=== PATIENT | male | born 1980 | race African-American/Black ===

== ENCOUNTER 2017-12-08 19:21 | Observation (INO) ==
--- NOTE | 2017-12-08 19:31 | Emergency Department Note ---
Disposition Clinical Impression: Hypertensive emergency Disposition: Admitted As Inpatient Condition: Fair Time of Disposition: 23:12 General Adult HPI - General Chief complaint: ED Extremity Injury, Upper Stated complaint: L Hand Injury from 11/29 Time Seen by Provider: 12/08/17 19:31 Source: patient Mode of arrival: ambulatory Limitations: no limitations Nursing Notes Reviewed: Yes Vital Signs Reviewed: Yes - History of Present Illness HPI Narrative: 37 year old male presenting with L hand pain since fall 11/29. He is unable to make a complete fist, reports mild swelling, denies cold extremities, numbness. Recent history significant for hypertensive urgency, pt reports noncompliance with prior prescriptions (labetalol and lisinopril), he responded to antihypertensive medication while in-patient for hypertensive urgency a week ago , he then left AMA on the . Pain Scale: 7 - Related Data Home Medications Medication Instructions Recorded Confirmed Labetalol HCl 300 mg PO BID 12/02/17 12/02/17 Lisinopril [Zestril] 10 mg PO DAILY 12/02/17 12/02/17 Quetiapine Fumarate [SEROquel] 100 mg PO HS 12/02/17 12/02/17 Allergies Allergy/AdvReac Type Severity Reaction Status Date / Time Amoxicillin Allergy See Verified 12/02/17 08:47 Comments Constitutional: Denies: fever Eyes: Denies: vision change Cardiovascular: Reports: other (palpitations and chest discomfort for 1 week). Denies: dyspnea on exertion, syncope Respiratory: Denies: cough, dyspnea Gastrointestinal: Denies: abdominal pain Past Medical History - Past Medical History Medical history: Reports: hypertension, myocardial infarction, renal disease Surgical history: Reports: no surgical history Psychiatric history: Reports: no psych history - Social History Smoking Status: Current every day smoker Smokeless Tobacco Status: No Alcohol use: Reports: occasionally Drug use: Reports: opiates, marijuana, IV Drug Use Physical Exam - General Limitations: no limitations General appearance: alert, in no apparent distress - Head Head exam: atraumatic, normocephalic - Eye Eye exam: Present: EOMI - ENT ENT exam: mucous membranes moist - Neck Neck exam: Present: full ROM - Cardiovascular Cardiovascular exam: Present: tachycardia. Absent: rubs, JVD - Abdominal Exam Abdominal exam: Present: soft, Non-Tender - Neurological Exam Neurological exam: Present: alert, oriented X3, other (no slurring of speech, no facial asymmetry) - Psychiatric Psychiatric exam: Present: normal affect - Skin Skin exam: Present: warm. Absent: cyanosis Course Course Narrative: On exam patient was hypertensive and tachycardic. Rest of vitals without normal limits. Neuro exam does not reveal cranial nerve deficit, facial asymmetry, or slurring of speech. Currently concern for hypertensive urgency, starting patient on his Labetalol 300mg BID, Lisinopril 10mg which he has been non- compliant with. Will order ecg, trop, and basic blood work. Discussed risks of non-compliance with patient. Initial complaint of L hand pain reveals no osseous abnormality on 2 view xray, will splint. ECG shows tachycardia, no st elevation, does have inverted t waves in I, II, aVL , aVF (new), V5, V6; similar to ECG obtained 12/01. Troponin is 0.06, down-trending from 0.12 the day he left AMA. Creatinine is elevated (chronically around 1.5-1.8) Manually measured bp between 150-160 systolic, will not start nitro drip at this time. Discussed patient with admitting hospitalist who agrees to admit for hypertensive emergency and management. Vital Signs Temperature 98.1 F 12/08/17 19:24 Pulse Rate 110 12/08/17 19:24 Respiratory Rate 16 12/08/17 19:24 Blood Pressure 220/128 12/08/17 19:24 O2 Sat by Pulse Oximetry 100 12/08/17 19:24 Temperature 98.1 F 12/08/17 19:24 Pulse Rate 90 12/08/17 22:36 Respiratory Rate 14 12/08/17 22:36 Blood Pressure 158/92 12/08/17 22:36 O2 Sat by Pulse Oximetry 98 12/08/17 22:36 Oxygen Delivery Oxygen Delivery Room Air Medical Decision Making - Medical Records Medical records reviewed: Yes I reviewed the patient's medical records. - Lab Data Lab results reviewed: Yes I reviewed the patient's lab results. Result diagrams: 12/08/17 20:38 12/08/17 20:39 Lab Results 12/08/17 12/08/17 12/08/17 Range/Units 20:38 20:39 20:39 WBC 6.2 (4.3-11.1) K/mcL RBC 5.71 H (4.19-5.50) M/mcL Hgb 14.5 (12.9-16.9) g/dL Hct 42.3 (37.5-50.1) % MCV 74.1 L (83.0-100.0) fL MCH 25.4 L (28.0-33.3) pg MCHC 34.3 (31.6-35.5) g/dL RDW 15.0 H (11.5-14.5) % Plt Count 186 (140-400) K/mcL MPV 11.0 (9.4-12.4) fL Immature Gran % 0.2 (0-4) % Seg Neutrophils % 57.8 % Lymphocytes % 32.1 % Monocytes % 9.0 % Eosinophils % 0.6 % Basophils % 0.3 % Neutrophils # 3.6 (1.6-8.9) K/mcL Lymphocytes # 2.0 (0.6-4.6) K/mcL Monocytes # 0.6 (0.0-1.3) K/mcL Eosinophils # 0.0 (0.0-0.6) K/mcL Basophils # 0.0 (0.0-0.2) K/mcL Sodium 139 (136-145) mEq/L Potassium 4.4 (3.5-5.1) mEq/L Chloride 110 H (98-107) mEq/L Carbon Dioxide 25 (23-29) mEq/L BUN 25 H (6-20) mg/dL Creatinine 1.82 H (0.70-1.30) mg/dL Est GFR ( Amer) 52 L (> 60) Est GFR (Non-Af Amer) 43 L (> 60) BUN/Creatinine Ratio 14 (6-26) Glucose 115 H (70-105) mg/dL Calculated Osmolality 293 (280-300) Calcium 8.8 (8.6-10.3) mg/dL Troponin I 0.06 H* (< 0.04) ng/mL - Radiology Data Radiology results reviewed: Yes I reviewed the patient's radiology results. Hand X-Ray 12/08/17 19:44 IMPRESSION: No acute osseous abnormality of the left hand. D/ / Scotty Álvarez MD / Scotty Álvarez MD Interpreting Provider: Scotty Álvarez MD - EKG Data EKG #1 EKG attestation: Yes I reviewed and interpreted this EKG. EKG results narrative: ECG obtained 2015; tachycardic at 100bpm, there are t wave inversions in leads I , II, aVF, V5, V6. Attestation Statement - Attestation Attestation: I examined this patient and my medical decision-making was reviewed with the Resident Physician. I agree with the documented findings, disposition and treatment plan as described except to the extent set forth below. Findings consistent with hypertensive emergency. This is suggested by the underlying elevated troponin as well as elevated creatinine. I do suspect a significant noncompliance with hypertensive regimen. The patient will be given his normal by mouth dose of labetalol. I would proceed with admission to hospital for further management and monitoring of cardiac biomarkers.
[2017-12-08] MEDS ORDERED: Nitroglycerin 0.4 MG TAB.SUBL SL PRN (20:19)
[2017-12-08] MEDS ORDERED: Aspirin 81 MG TAB.CHEW PO ONE (20:19)
[2017-12-08 21:05] LABS: Basophils % 0.3 %; Eosinophils % 0.6 %; Hematocrit 42.3 % (37.5-50.1); Hemoglobin 14.5 g/dL (12.9-16.9); Immature Granulocytes % 0.2 % (0-4); Lymphocytes % 32.1 %; Mean Corpuscular HGB Conc 34.3 g/dL (31.6-35.5); Mean Corpuscular Hemoglobin 25.4 pg (28.0-33.3); Mean Corpuscular Volume 74.1 fL (83.0-100.0); Monocytes # 0.6 K/mcL (0.0-1.3); Neutrophils # 3.6 K/mcL (1.6-8.9); Platelet Count 186 K/mcL (140-400); Red Blood Count 5.71 M/mcL (4.19-5.50); Segmented Neutrophils % 57.8 %
[2017-12-08 21:07] LABS: Calcium 8.8 mg/dL (8.6-10.3); Potassium 4.4 mEq/L (3.5-5.1)
[2017-12-08] MEDS ORDERED: Nitroglycerin 25 MG/250 ML INFUS..BTL IVC SCH (21:30)
[2017-12-09] MEDS ORDERED: Acetaminophen IV 1,000 MG/100 ML INFUS..BTL IVPB ONE (01:26)
[2017-12-09] MEDS ORDERED: Ibuprofen 400 MG TABLET PO ONE (01:28)
[2017-12-09] MEDS ORDERED: Naloxone 0.4 MG/ML INJ IVP PRN ×2 (02:04)
--- NOTE | 2017-12-09 02:12 | Internal Med History&Physical ---
Date of Encounter: 12/09/17 Time of Encounter: 02:03 Assessment and Plan (1) Fall (on) (from) other stairs and steps, sequela Current visit: Yes Status: Acute 37-year-old male presenting for left hand pain 2 weeks, after fall Hand x-ray impression reviewed no acute abnormalities Pain management while inpatient May elevate hand, to reduce edema Crushed ice (covered, not directly applied) can be compressed against the injured area for up to 20 minutes every one to two hours; for up to 48 hours. Physical therapy for functional rehabilitation (2) Hypertensive crisis Current visit: No Status: Acute SBP on floor 140 Vitals signs q4h Resume home medication Education on importance of non-compliance (3) CKD (chronic kidney disease) Current visit: No Status: Chronic Acute on Chronic CKD, with Cr above baseline Gentle IVF hydration Reports a history of hospitalization at [facility] in 2014 for which he tells me he needed dialysis and he was told he had a "heart attack". No [facility]. Monitor kidney function. Would benefit from outpatient nephrology referral. Patient was referred to Dr. Rivera Can possibly c/s Dr. Rivera here or refer him to his office before discharge Hold Lisinopril due renal function, may need to resume prior to discharge Qualifiers: Chronic kidney disease stage: stage 3 (moderate) Qualified Code(s): N18.3 - Chronic kidney disease, stage 3 (moderate) (4) Elevated troponin Current visit: No Status: Acute Troponins downtrending. Elevated troponin likely 2/2 to ischemic imbalance due to hypertension Trend cardiac enzymes. check TTE. c/s cardiology (5) DVT prophylaxis Current visit: No Status: Acute EPCD. (6) Smoking Current visit: Yes Status: Acute Nicotine patch while inpatient. Encourage smoking cessation. (7) History of opioid abuse Current visit: Yes Status: Acute Recommend judicious use of pain medication given history. No signs of withdrawal at this time. Internal Medicine - H&P: HPI Chief complaint: L Hand Pain Admitted From: Emergency Dept Plans for Post Hospital Care: Home History of present illness: Mr. Brown is a 37 year old male with hypertension presenting with left hand pain, found to have uncontrolled blood pressure in ED. Duration and onset: 2 weeks. Context: Fell down icy stairs, does not recall how. Associated symptoms: reduced second baker strength, mild pain with re-producing second baker. Denies SOB. Denies chest pain. Pt has been taking Percocet 5-325 x 2x day to control pain, from "wherever he can get". Pt admits to previous chronic drug abuse, including heroin. States he discontinued heroin 2 years ago and now only recreationally smokes marijuana. Pt is smoker. Past Med Surg Social Fam HX - Past Medical History Medical history: hypertension, myocardial infarction, renal disease Psychiatric history: no psych history - Past Surgical History Surgical History: no surgical history - Social History Smoking Status: Current every day smoker Packs per day: 0.5 pack Smokeless Tobacco Status: No Alcohol use: occasionally Drug use: opiates, marijuana, IV Drug Use - Family History Father Adopted: No Living Status: Hx Family Cardiac Disorders: No Hx Family Respiratory Disorders: Yes Hx Family Cancer: Yes Hx Family GI Disorders: Yes Hx Family Endocrine Disorder: Yes Hx Family Neuromuscular Disorders: No Hx Family Neurologic Disorders: No Hx Family HEENT Disorders: No Hx Family Autoimmune Disorders: No Mother Living Status: Hx Family GI Disorders: Yes Internal Medicine - H&P: Meds Labetalol HCl 300 mg PO BID 12/02/17 [History] Lisinopril [Zestril] 10 mg PO DAILY 12/02/17 [History] Quetiapine Fumarate [SEROquel] 100 mg PO HS 12/02/17 [History] 3 Allergy/AdvReac Type Severity Reaction Status Date / Time Amoxicillin Allergy See Verified 12/02/17 08:47 Comments All Systems PM: A 10-system review of systems was performed and is negative for pertinent findings except as documented above in the HPI. - Constitutional Vitals: Temp Pulse Resp BP Pulse Ox 98.0 F 73 18 143/82 99 12/08/17 23:56 12/08/17 23:56 12/08/17 23:56 12/08/17 23:56 12/08/17 23:56 General appearance: Present: cooperative, A&O X 3, no acute distress, answers questions appropriately Exam: No tremors. No agitation. No moist skin. HR within NML. - Head Head exam: Present: atraumatic, normocephalic - Eye Eye exam: Present: EOMI, normal appearance. Absent: conjunctival injection - Respiratory Respiratory exam: Present: CTAB. Absent: accessory muscle use, chest wall tenderness, respiratory distress - Cardiovascular Cardiovascular exam: Present: RRR, +S1, +S2 - Extremities Exam Additional comments: Hands: Right: No Soft tissue swelling present. Full second baker strength. No Point tenderness o. Full range of motion. No joint laxity. Extremity and fingers of normal warmth. No puncture wound. No lacerations visible. No cyanosis. Left Soft tissue swelling present, most prominent at region overlying metacarpal bones. Subtle decreased second baker strength in comparison to right. Point tenderness over base of third proximal phalanges. Full range of motion. No joint laxity. Extremity and fingers of normal warmth. No puncture wound. No lacerations visible. No cyanosis. Radial pulse palpable. Internal Med - H&P Results - Labs CBC & Chem 7: 12/09/17 02:45 12/09/17 02:45 - EKG Data EKG comments: 09/12/2017 20:16: 16 EKG reviewed with attending MD Blanco EKG with T wave inversion seen, present on EKG from 12/01 too but not on EKG on . - Impressions ITS Impressions Hand X-Ray 12/08/17 19:44 IMPRESSION: No acute osseous abnormality of the left hand. D/ / Scotty Álvarez MD / Scotty Álvarez MD Interpreting Provider: Scotty Álvarez MD
--- NOTE | 2017-12-09 02:17 | Event Note ---
Date of Encounter: 12/09/17 Time of Encounter: 02:12 Patient was seen and examined by myself. Agree with the H&P as written by the Resident Physician, Judy Tian. Has h/o noncompliance, htn, CKD, IVDA last used in 2014. Also reports a history of hospitalization at [facility] back in 2014 for which he tells me he needed dialysis and he was told he had a "heart attack". No [facility]. Recently left AMA on 12/02 and at the time was admitted with HTNsive urgency requiring Cardene drip. He is supposed to be on Labetalol and Lisinopril which he is not taking. He comes with left hand pain since a fall on 11/29. Xray of hand is neg. BP in ED was found again elevated in the 220s/110s. Initially ordered a nitro drip. Was given labetalol and lisinopril home doses and BP started coming down. Patient is admitted for hypertensive urgency. Labs showed trops of .06 but seems to have been elevated during last visit too with trop of .12 on 12/02. Patient has no CP. EKG with T wave inversion in leads I, II, aVL, aVF, V5, V6, LVH. Those were present on EKG from 12/01 too but not on EKG back on 02/25/2017. Plan: Resume home antihypertensives but hold ACEI for now with kidney function above baseline. Trend cardiac enzymes. check TTE. c/s cardiology Monitor kidney function. Would benefit from outpatient nephrology referral Patient was referred to Dr. Rivera at some time in the past and he says he saw him once or twice but stopped following. Can possibly c/s Dr. Rivera here or refer him to his office before discharge Gentle hydration Needs education on compliance
[2017-12-09] MEDS: 0.9 % Sodium Chloride 1,000 ML IVC SCH ×2 (02:30→13:45)
[2017-12-09 03:32] LABS: Mean Platelet Volume 11.3 fL (9.4-12.4); Red Cell Distribution Width 14.4 % (11.5-14.5)
[2017-12-09 03:34] LABS: Basophils % 0.3 %; Eosinophils # 0.1 K/mcL (0.0-0.6); Eosinophils % 1.9 %; Hematocrit 37.9 % (37.5-50.1); Hemoglobin 12.8 g/dL (12.9-16.9); Immature Granulocytes % 0.2 % (0-4); Immature Platelets 4.2 % (1.1-6.1); Lymphocytes # 2.6 K/mcL (0.6-4.6); Lymphocytes % 41.2 %; Mean Corpuscular HGB Conc 33.8 g/dL (31.6-35.5); Mean Corpuscular Hemoglobin 25.3 pg (28.0-33.3); Monocytes # 0.6 K/mcL (0.0-1.3); Monocytes % 9.4 %; Platelet Count 180 K/mcL (140-400); Red Blood Count 5.05 M/mcL (4.19-5.50)
[2017-12-09 03:49] LABS: Calcium 8.4 mg/dL (8.6-10.3); Potassium 3.8 mEq/L (3.5-5.1)
[2017-12-09] MEDS: Nicotine 21 MG PATCH.TD24 TD SCH (08:20)
--- NOTE | 2017-12-09 11:32 | Nephrology Consult Note ---
Date of Encounter: 12/09/17 Time of Encounter: 11:30 Assessment and Plan (1) Hypertensive urgency Current Visit: Yes Status: Acute History of present [place] room with hypertensive urgency. His blood pressure is currently well controlled on his current medical regimen. Patient has a history of very poor compliance with taking medications as well as with attending his office visits as an outpatient. 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 Currently his renal function is stable. His blood pressure is well controlled. The patient was counseled on being more compliant with taking his blood pressure medications and attending his office visits. I would continue his current medical regimen since blood pressure is well controlled. The patient can follow-up as an outpatient. (2) Chronic kidney disease, stage III (moderate) Current Visit: Yes Status: Acute (3) History of opioid abuse Current Visit: Yes Status: Acute History of Present Illness - History of Present Illness This is a 37-year-old male who previously was been followed for hypertension which has been severe as well as chronic kidney disease. Patient has been very poorly compliant with his medications as well as being very poorly compliant with attending his office visits as an outpatient. He was last seen in the office in July 2016. Patient now presents to the emergency room with complaints of hand pain following a fall. He was noted to have a blood pressure of 220/128 and was subsequently admitted to the hospital. He says he has not taken any blood pressure medications for many months because he does not like taking medications. He has been started on oral medications here in the hospital and his blood pressure currently is well controlled at 130/70. His serum creatinine today is down to his baseline of 1.65 with a GFR of 58. 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 Patient also has a history of substance abuse. Past Med Surg Social Fam HX - Past Medical History Medical history: hypertension, myocardial infarction, renal disease Psychiatric history: no psych history - Past Surgical History Surgical History: no surgical history - Social History Smoking Status: Current every day smoker Packs per day: 0.5 pack Smokeless Tobacco Status: No Alcohol use: occasionally Drug use: opiates, marijuana, IV Drug Use - Family History Father Adopted: No Living Status: Hx Family Cardiac Disorders: No Hx Family Respiratory Disorders: Yes Hx Family Cancer: Yes Hx Family GI Disorders: Yes Hx Family Endocrine Disorder: Yes Hx Family Neuromuscular Disorders: No Hx Family Neurologic Disorders: No Hx Family HEENT Disorders: No Hx Family Autoimmune Disorders: No Mother Living Status: Hx Family GI Disorders: Yes Medications and Allergies Labetalol HCl 300 mg PO BID 12/02/17 [History] Lisinopril [Zestril] 10 mg PO DAILY 12/02/17 [History] Quetiapine Fumarate [SEROquel] 100 mg PO HS 12/02/17 [History] 3 Allergy/AdvReac Type Severity Reaction Status Date / Time Amoxicillin Allergy See Verified 12/02/17 08:47 Comments Review of Systems Constitutional: as per HPI Eyes: bilateral: blurred vision (patient denies), diplopia (patient denies) Nose, mouth and throat: no dizziness, no headache(s) Cardiovascular: no chest pain, no palpitations Respiratory: no cough, no dyspnea Gastrointestinal: no abdominal pain, no change in bowel habits Musculoskeletal: no muscle weakness, no numbness Musculoskeletal: left: hand pain Integumentary: no hirsutism, no striae Neurological: as per HPI Psychiatric: no depression, no difficulty concentrating Endocrine: as per HPI Hematologic/Lymphatic: no easy bruising, no lymphadenopathy Exam - Vital Signs Vital signs: Initial Vital Signs Temp Pulse Resp BP Pulse Ox 98.1 F 110 16 220/128 100 12/08/17 19:24 12/08/17 19:24 12/08/17 19:24 12/08/17 19:24 12/08/17 19:24 Vital Signs - Last 8 Hours Temp Pulse Resp BP Pulse Ox 12/09/17 10:56 98.6 F 62 16 130/70 96 12/09/17 06:56 98.5 F 58 16 138/74 99 12/09/17 04:02 98.0 F 82 14 120/68 98 12/09/17 03:50 16 100 Intake and Output 12/08/17 12/09/17 12/09/17 23:59 07:59 15:59 Intake Total 600 / 600 Balance 600 / 600 Intake: Oral 600 / 600 Other: Meal Breakfast Percent of Meal Consumed 100% # Voids 2 Weight 82.4 kg Blood Glucose* 149 113 - General Appearance Exam: Patient is alert and oriented. He is in no acute distress. Blood pressure 130/ 70. Lungs essentially clear to auscultation. Heart regular rate and rhythm without any murmurs or S4 gallops clicks or rubs. Abdomen shows normal bowel sounds no bruits masses organomegaly or tenderness. There is no peripheral edema. Results - Lab Results 12/09/17 02:45 12/09/17 02:45 Most recent lab results Calcium 8.4 mg/dL (8.6-10.3) L 12/09/17 02:45 Consult Discharge Plan - Plan Instructions: Hypertensive Crisis (ED) Referrals: NONE,PCP [Primary Care Provider] -
--- NOTE | 2017-12-09 12:45 | Electrocardiograph Report ---
[address] [place], [place] [address] Test Date: 2017-12-08 Pat Name: Rob Brown Department: 102 Room: 3B14 Gender: M [employer] Hand: cynthia : 1980 Requested By: Modesto Barbour Order Number: [id number] Reading MD: Jordin Roblero Measurements Intervals [place] Rate: 100 P: 43 MI: 132 QRS: 78 QRSD: 89 T: 199 QT: 348 QTc: 405 Interpretive Statements SINUS TACHYCARDIA LEFT ATRIAL ENLARGEMENT Left ventricular hypertrophy WITH STRAIN PATTERN Electronically Signed On 12-09-2017 12:42:59 EDT by Jordin Roblero
[2017-12-09] MEDS ORDERED: Acetaminophen 325 MG TABLET PO PRN (14:17)
--- NOTE | 2017-12-09 14:23 | Cardiology Consult Note ---
Date of Encounter: 12/09/17 Time of Encounter: 14:17 Assessment and Plan (1) Elevated troponin Current Visit: No Status: Acute Mild elevated trops and previous nml ECHO Hx of OR, will obtain records for review Limited ECHO to evaluate EF Accelerated atherogenesis with cocaine in past will consider stress test after ECHO Obtain [facility] records for review Discussion w patient/family: The assessment and plan as outlined above was discussed with the patient and/or family members who expressed understanding and agreement. All questions were answered. Thank you for involving us in the care of your patient. Please call with any questions. History of Present Illness Consult date: 12/09/17 Consult reason: Elevated troponin Chief complaint: SOB History of present illness: Mr. Brown is a 37 year old male with h/o HTN, CKD, CAD (OR at [facility]) presents after a slip and fall on stairs with hand injuries. Patient found to have ST changes and initial trop .06. Previous ECHO unremakable and patient not sure of his work up for previous OR 2 years ago. He currently is resting comfortable denies any symptoms. He does admit to a hx of polysubstance abuse and states last used Meth. He complains of recent worsening HOGAN in the last few weeks with fast regular palpitations. He admits to years of crack cocaine Past Med Surg Social Fam HX - Past Medical History Medical history: hypertension, myocardial infarction, renal disease Psychiatric history: no psych history - Past Surgical History Surgical History: no surgical history - Social History Smoking Status: Current every day smoker Packs per day: 0.5 pack Smokeless Tobacco Status: No Alcohol use: occasionally Drug use: opiates, marijuana, IV Drug Use - Family History Father Adopted: No Living Status: Hx Family Cardiac Disorders: No Hx Family Respiratory Disorders: Yes Hx Family Cancer: Yes Hx Family GI Disorders: Yes Hx Family Endocrine Disorder: Yes Hx Family Neuromuscular Disorders: No Hx Family Neurologic Disorders: No Hx Family HEENT Disorders: No Hx Family Autoimmune Disorders: No Mother Living Status: Hx Family GI Disorders: Yes Medications and Allergies Labetalol HCl 300 mg PO BID 12/02/17 [History] Lisinopril [Zestril] 10 mg PO DAILY 12/02/17 [History] Quetiapine Fumarate [SEROquel] 100 mg PO HS 12/02/17 [History] 3 Allergy/AdvReac Type Severity Reaction Status Date / Time Amoxicillin Allergy See Verified 12/02/17 08:47 Comments All Systems Review: The remainder of the systems were reviewed and are negative Physical Examination Vital Signs, Last 4 Hours Temp Pulse Resp BP Pulse Ox 12/09/17 10:56 98.6 F 62 16 130/70 96 General: Conversant, No Apparent Distress HEENT: Atraumatic, Normocephaly, Mucus Membranes Moist Neck: No JVD, Normal carotid pulses Cardiac: Reg Rate and Rhythm, Normal S1 and S2, No Murmur Lungs: Normal Breath Sounds, No Wheeze, Rales, Rhonchi Neuro: Alert and responsive, No focal deficits noted Abdomen: Soft, Non-Tender Skin: No rashes noted on visualized skin Musculoskeletal: No Chest Wall Tenderness Extremities: No Clubbing, No Cyanosis, No Edema, Normal Pulses Results 12/09/17 02:45 12/09/17 02:45 Lab Results 12/09/17 12/09/17 12/09/17 02:45 02:45 02:45 WBC 6.4 Hgb 12.8 L D Hct 37.9 Plt Count 180 Sodium 139 Potassium 3.8 Chloride 109 H Carbon Dioxide 24 BUN 21 H Creatinine 1.65 H Glucose 122 H Calcium 8.4 L Troponin I 0.05 H* 12/09/17 08:17 WBC Hgb Hct Plt Count Sodium Potassium Chloride Carbon Dioxide BUN Creatinine Glucose Calcium Troponin I 0.03 Consult Discharge Plan - Plan Instructions: Hypertensive Crisis (ED) Referrals: NONE,PCP [Primary Care Provider] -
--- NOTE | 2017-12-09 17:44 | Internal Med Progress Note ---
Date of Encounter: 12/09/17 Time of Encounter: 08:45 - Assessment and plan (1) Chronic kidney disease, stage III (moderate) Current Visit: Yes Status: Chronic Assessment and plan: Chronic. Patient has been nonadherent to treatment plan and follow-up appointments. Serum creatinine is 1.65/GFR 48. Improving since admission. Nephrology has been consult and is following. Continuing current medical regimen and follow up outpatient. (2) Fall (on) (from) other stairs and steps, sequela Current Visit: Yes Status: Acute Assessment and plan: Patient with left hand pain status post fall downstairs 2 weeks ago. Left hand x-ray is negative. Continue conservative pain management. Tylenol has been ordered today. Elevate, ice, Jet if necessary. Physical therapy for functional rehabilitation. (3) History of opioid abuse Current Visit: Yes Status: Chronic Assessment and plan: Patient reports no heroin use for 3 years. (4) Hypertensive emergency Current Visit: Yes Status: Acute Assessment and plan: Prior history. Acute episode this admission. Initial blood pressure however was 220/128. He has been placed on Trandate, Zestril. Blood pressure is now well controlled. Continue prescriptions after discharge. Nephrology is following, plan as above. Continue telemetry Continue to monitor vital signs. (5) Smoking Current Visit: Yes Status: Chronic Assessment and plan: Patient reports smoking 0.5 pack per day. NicoDerm patch. (6) DVT prophylaxis Current Visit: Yes Status: Acute Assessment and plan: Patient has been ambulatory, continue to encourage ambulation. (7) Elevated troponin Current Visit: Yes Status: Acute Assessment and plan: While, flat, adynamic elevation in the setting of hypertensive crisis and CKD. Cardiology has ordered a limited echo. Records from [place] have been ordered for review. - Time Spent With Patient less than 15 minutes - Subjective Interval history: Patient was seen and assessed at bedside at 8:45 AM. He reports that he is feeling better. He reports that he is ready to be adherent to her medications and follow-up appointments. He denies headache, blurred vision, neck or back pain. He denies chest pain or shortness of breath. - Constitutional Vitals: Temp Pulse Resp BP Pulse Ox 98.9 F 65 18 120/82 99 12/09/17 15:54 12/09/17 15:54 04/02/18 15:54 12/09/17 15:54 12/09/17 15:54 General appearance: Present: cooperative, A&O X 3, pleasant, no acute distress, answers questions appropriately - Head Head exam: Present: atraumatic, normal inspection, normocephalic - Eye Eye exam: Present: normal appearance, conjuntiva pink, sclera anicteric - Neck Neck exam general surgery: Present: supple, trachea midline. Absent: lymphadenopathy - Respiratory Respiratory exam: Present: CTAB. Absent: accessory muscle use, rales, rhonchi, wheezes - Cardiovascular Cardiovascular exam: Present: RRR, +S1, +S2. Absent: diastolic murmur, gallop, rubs, systolic murmur - GI/Abdominal GI/Abdominal exam: Present: normal bowel sounds, soft, no peritoneal signs. Absent: distended, tenderness - Extremities Exam Extremities exam: Present: warm, radial pulses palpable and symmetrical. Absent : calf tenderness, cyanotic, pedal edema - Neurological Exam Neurological exam: Present: CN II-XII intact, oriented X3, no focal deficits. Absent: pronater drift, facial droop, speech deficit - Skin Skin exam: Present: dry, intact Internal Medicine: Result - Labs CBC & Chem 7: 12/09/17 02:45 12/09/17 02:45 Labs: Short CBC 12/09/17 Range/Units 02:45 WBC 6.4 (4.3-11.1) K/mcL Hgb 12.8 L D (12.9-16.9) g/dL Hct 37.9 (37.5-50.1) % Plt Count 180 (140-400) K/mcL Neutrophils # 3.0 (1.6-8.9) K/mcL BMP 12/09/17 02:45 Sodium 139 Potassium 3.8 Chloride 109 H Carbon Dioxide 24 BUN 21 H Creatinine 1.65 H Glucose 122 H Calcium 8.4 L Cardiac Enzymes 12/09/17 12/09/17 Range/Units 02:45 08:17 Troponin I 0.05 H* 0.03 (< 0.04) ng/mL - Impressions Impressions Echocardiogram 12/09/17 03:05 Impressions: LVEF 55-60%. Mild pulmonary hypertension. Moderate-severe concentric left ventricular hypertrophy without LVOT gradient or mitral systolic anterior motion No severe valvular dysfunction. Left Ventricular Wall Motion: Rest Echo Findings All wall segments showed normal motion. Findings: ECG Findings * Normal sinus rhythm. Study Quality * Technically adequate exam. Right Ventricle * Normal right ventricular structure and function. Right Atrium * Normal right atrial size. Aortic Valve * Trileaflet aortic valve with normal function. Interatrial Septum * No evidence of PFO by color Doppler. Aorta * Normally sized aortic root. Pericardium * The pericardium appears normal. Mitral Valve * Normal mitral valve structure. * No mitral stenosis. * Mild-moderate mitral regurgitation. Left Ventricle * LVEF 55-60%. * Normal left ventricular diastolic function. * Severe concentric left ventricular hypertrophy. Tricuspid Valve * No tricuspid stenosis. * Estimated RVSP is 40 mmHg. * Mild pulmonary hypertension. * Mild tricuspid regurgitation. Pulmonic Valve * No pulmonic stenosis. * Normal pulmonic valve structure. * Mild pulmonic regurgitation. Left Atrium * Severely dilated left atrium. IVC * Normal IVC dimensions and inspiratory collapse. Consult Discharge Plan - Plan Instructions: Hypertensive Crisis (ED) Referrals: NONE,PCP [Primary Care Provider] -
--- NOTE | 2017-12-10 08:14 | Event Note ---
Date of Encounter: 12/10/17 Time of Encounter: 08:14 The patient's blood pressure is under control. Renal function is stable. Nephrology will sign off. The patient can follow-up as an outpatient. Please call again if needed.
[2017-12-10] MEDS: Nicotine 21 MG PATCH.TD24 TD SCH (08:24)
--- NOTE | 2017-12-10 10:31 | Cardiology Progress Note ---
Date of Encounter: 12/10/17 Time of Encounter: 10:00 Assessment and Plan (1) Elevated troponin Current Visit: Yes Status: Acute Per cardiology: -Mild elevated trops 0.06, 0.04, 0.03, in the setting of fall, CKD. -Denies chest pain. -NO acute ECG changes. -TTE with LVEF 55-60%, mild pulmonary hypertension, moderate-severe concentric LVH no LVOT gradiant, no segmental wall motion abnormalities. -Records reviewed from [facility] with TTE with LVEF preserved, no segmental wall motion abnormalities. Per review of records, was not diagnosed with NV, was treated for endocarditis. -Do not suspect NSTEMI, suspect demand ischemia related to above. NO cardiac rehab consult warranted. -Per discussion with , cardiology will sign off and will follow in outpateint setting. -Can consider outpatient stress test. Discussion w patient/family: The assessment and plan as outlined above was discussed with the patient who expressed understanding and agreement. All questions were answered. Thank you for involving us in the care of your patient. Please call with any questions. Discussed and reviewed with . Subjective Principal diagnosis: fall Interval history: Patient denies chest pain overnight, denies shortness of breath. Objective Vital Signs, Last 4 Hours Temp Pulse Resp BP Pulse Ox 12/10/17 07:16 97.4 F L 64 16 133/76 98 General: Conversant, No Apparent Distress, Other (Flat affect. ) HEENT: Atraumatic, Normocephaly, Mucus Membranes Moist Neck: No JVD, Normal carotid pulses Cardiac: Reg Rate and Rhythm, Normal S1 and S2, No Murmur Lungs: Normal Breath Sounds, No Wheeze, Rales, Rhonchi Neuro: Alert and responsive, No focal deficits noted Abdomen: Soft, Non-Tender Skin: No rashes noted on visualized skin Musculoskeletal: No Chest Wall Tenderness Extremities: No Clubbing, No Cyanosis, No Edema, Normal Pulses Results 12/09/17 02:45 12/09/17 02:45 Impressions Echocardiogram 12/09/17 03:05 Impressions: LVEF 55-60%. Mild pulmonary hypertension. Moderate-severe concentric left ventricular hypertrophy without LVOT gradient or mitral systolic anterior motion No severe valvular dysfunction. Left Ventricular Wall Motion: Rest Echo Findings All wall segments showed normal motion. Findings: ECG Findings * Normal sinus rhythm. Study Quality * Technically adequate exam. Right Ventricle * Normal right ventricular structure and function. Right Atrium * Normal right atrial size. Aortic Valve * Trileaflet aortic valve with normal function. Interatrial Septum * No evidence of PFO by color Doppler. Aorta * Normally sized aortic root. Pericardium * The pericardium appears normal. Mitral Valve * Normal mitral valve structure. * No mitral stenosis. * Mild-moderate mitral regurgitation. Left Ventricle * LVEF 55-60%. * Normal left ventricular diastolic function. * Severe concentric left ventricular hypertrophy. Tricuspid Valve * No tricuspid stenosis. * Estimated RVSP is 40 mmHg. * Mild pulmonary hypertension. * Mild tricuspid regurgitation. Pulmonic Valve * No pulmonic stenosis. * Normal pulmonic valve structure. * Mild pulmonic regurgitation. Left Atrium * Severely dilated left atrium. IVC * Normal IVC dimensions and inspiratory collapse. Active Medications Acetaminophen (Tylenol) 650 mg PO Q6HR PRN PRN Reason: Moderate Pain Stop: 06/10/18 14:18 Last Admin: 12/09/17 18:32 Dose: 650 mg Albuterol Sulfate (Albuterol Inhaler) 2 puff IH [id number] PRN PRN Reason: Shortness Of Breath/Wheezing Stop: 06/10/18 04:01 Aspirin (Aspirin Ec) 81 mg PO DAILY RENETTA Stop: 06/12/18 09:01 Labetalol HCl (Trandate) 300 mg PO BID RENETTA Stop: 06/10/18 09:01 Last Admin: 12/10/17 08:24 Dose: 300 mg Lisinopril (Zestril) 10 mg PO DAILY RENETTA PRN Reason: Protocol Stop: 06/10/18 09:01 Last Admin: 12/09/17 08:20 Dose: 10 mg Naloxone HCl (Narcan) 0.4 mg IVP Q2MIN PRN PRN Reason: SEE COMMENTS Stop: 06/10/18 02:05 Nicotine (Nicoderm) 21 mg TD DAILY RENETTA PRN Reason: Protocol Stop: 06/10/18 09:01 Last Admin: 12/10/17 08:24 Dose: 21 mg Quetiapine Fumarate (Seroquel) 100 mg PO HS RENETTA PRN Reason: Protocol Stop: 06/10/18 21:01 Last Admin: 12/09/17 21:53 Dose: 100 mg Laboratory Tests 04/0112/09/17 12/09/17 20:39 02:45 02:45 Hgb 12.8 L D Creatinine Troponin I 0.06 H* 0.05 H* 12/09/17 12/09/17 02:45 08:17 Hgb Creatinine 1.65 H Troponin I 0.03 - Imaging and Cardiology Chest Xray: report reviewed Echo: report reviewed - EKG Interpretation EKG results cardiology: other (Telemetry reviewed with average HR previous 12 hours noted to be 74, SR. PVCs and PACs noted.) Consult Discharge Plan - Plan Instructions: Hypertensive Crisis (ED) Referrals: NONE,PCP [Primary Care Provider] -
[2017-12-10 11:08] VITALS: BP 127/86
--- NOTE | 2017-12-10 13:41 | Discharge Summary ---
Date of Encounter: 12/10/17 Time of Encounter: 13:44 - Discharge Diagnosis (1) Hypertensive emergency Priority: Primary Status: Acute Comments: Has known history hypertension. In hypertensive emergency on arrival with SBP in 200s; secondary to medication noncompliance. BP well controlled with resuming home BP medication. Strongly encouraged medication compliance and establishing care with PCP. Given 1 month Rx for BP medication. (2) Elevated troponin Priority: Primary Status: Acute Comments: mild elevated trops 0.06, 0.04, 0.03, in the setting of fall, CKD. Denied chest pain. No acute ECG changes. TTE with EF 55-60%, mild pulmonary hypertension, moderate-severe concentric LVH no LVOT gradiant, no segmental wall motion abnormalities. Evaluated by Cardiology who did not suspect NSTEMI rather demand ischemia related to fall, CKD. No further cardiac workup recommended (consider outpatient stress test per cardiology recommendations). Follow-up with cardiology and follow up outpatient (3) Chronic kidney disease, stage III (moderate) Priority: Primary Status: Chronic Comments: per hx. Suppose to follow with nephrology outpatient but has been noncompliant with office visits. Renal function at baseline. Follow-up with nephrology outpatient. Nephrology followed (4) Fall (on) (from) other stairs and steps, sequela Priority: Primary Status: Acute Comments: Reported fall downstairs 2 weeks prior to presentation subsequent left hand pain. Left hand x-ray negative. Continue Tylenol PRN outpatient. (5) Smoking Priority: Secondary Status: Chronic Comments: Current smoker, cessation advised. Nicotine patches at discharge. Hospital course: Please see assessment and plan for Hospital course Discharge discussed with: patient (Seen and examined at bedside. Patient is new to me, information obtained from chart review and patient report. Patient says he feels back to baseline and once to discharge home today. No chest pain or shortness of breath. Strongly encourage smoking cessation and establishing care with PCP.) Time spent discussing smoking cessation with patient: 3 to 10 minutes - Time Spent with Patient Total time spent providing and/or coordinating discharge services: - Discharge Medications Prescriptions: Labetalol HCl 300 mg PO BID #60 tablet Lisinopril [Zestril] 10 mg PO DAILY #30 tablet Nicotine Patch [Nicoderm] 21 mg TD DAILY #30 patch.td24 Home Medications: Quetiapine Fumarate [Seroquel] 100 mg PO HS 12/02/17 [History] Labetalol HCl 300 mg PO BID #60 tablet 12/10/17 [Rx] Lisinopril [Zestril] 10 mg PO DAILY #30 tablet 12/10/17 [Rx] Nicotine Patch [Nicoderm] 21 mg TD DAILY #30 patch.td24 12/10/17 [Rx] Allergies/Adverse Reactions: 3 Allergy/AdvReac Type Severity Reaction Status Date / Time Amoxicillin Allergy See Verified 12/02/17 08:47 Comments Date of admission: 12/08/17 23:11 Primary care physician: PCP NONE Consults: 12/09/17 03:04 Consult to Cardiology [CONS] Routine Comment: Consulting Provider: Cardiology Tanvi Reason for Consult: Elevated troponin Call Completed: No 12/09/17 10:51 Consult to Nephrology [CONS] Routine Consulting Provider: [facility] Spcrandy JONES Reason for Consult: ROGELIO on CKD, requesting evaluation for HTN and CKD Time Notified: 10:52 Call Completed: Yes Discharging clinician: Penny Lowry Anticipated date of discharge: 12/10/17 - Constitutional Vitals: Temp Pulse Resp BP Pulse Ox 97.7 F 73 16 127/86 96 12/10/17 11:02 12/10/17 11:02 12/10/17 11:02 12/10/17 11:02 12/10/17 11:02 General appearance: Present: cooperative, A&O X 3, pleasant, no acute distress, answers questions appropriately - Patient Status Disposition: Home, Self-Care Condition: Good Functional capacity at discharge: independent ambulation - Discharge Instructions Instructions: Hypertensive Crisis (ED) Follow Up With: NONE,PCP [Primary Care Provider] - (Please call [phone]) - Diet and Activity Activity: increase activity as tolerated Diet: advance to your usual diet
[2017-12-11] MEDS ORDERED: Aspirin Enteric Coated 81 MG Tablet PO SCH (09:00)
== END 2017-12-10 14:31 | disposition home or self-care (01) ==
LOC: EMEROO 19:21 → 3BNU 19:21
PROVIDERS: ADMIT Internal Medicine; ATTEND Registered Nurse

== ENCOUNTER 2017-12-23 19:25 | Observation (INO) ==
[2017-12-23 19:51] LABS: Basophils % 0.3 %; Hematocrit 47.1 % (37.5-50.1)
[2017-12-23 19:53] LABS: Eosinophils # 0.1 K/mcL (0.0-0.6); Hemoglobin 15.9 g/dL (12.9-16.9); Immature Granulocytes % 0.3 % (0-4); Immature Platelets 4.7 % (1.1-6.1); Lymphocytes % 27.3 %; Mean Corpuscular HGB Conc 33.8 g/dL (31.6-35.5); Mean Corpuscular Hemoglobin 25.1 pg (28.0-33.3); Mean Corpuscular Volume 74.3 fL (83.0-100.0); Mean Platelet Volume 11.2 fL (9.4-12.4); Monocytes # 0.6 K/mcL (0.0-1.3); Monocytes % 7.7 %; Neutrophils # 4.5 K/mcL (1.6-8.9); Platelet Count 195 K/mcL (140-400); Red Blood Count 6.34 M/mcL (4.19-5.50); Red Cell Distribution Width 16.1 % (11.5-14.5); Segmented Neutrophils % 63.4 %
[2017-12-23 19:54] LABS: Lymphocytes # 1.9 K/mcL (0.6-4.6)
[2017-12-23 20:01] LABS: Prothrombin Time 10.3 Seconds (9.4-12.1)
[2017-12-23] MEDS ORDERED: *HR* LORazepam 2 MG/ML VIAL IVP ONE ×2 (20:01→21:00)
[2017-12-23 20:04] LABS: Activated Partial Thrombo Time 27.1 Seconds (26.0-36.0)
--- NOTE | 2017-12-23 20:05 | Emergency Department Note ---
Disposition Clinical Impression: Chest pain, Drug abuse and dependence Disposition: Admitted As Inpatient Condition: Fair Forms: ED Satisfaction Letter Time of Disposition: 21:21 Chest Pain HPI - General Chief Complaint: ED Chest Pain Stated Complaint: "My heart hurts" Time Seen by Provider: 12/23/17 19:56 Source: patient Mode of arrival: ambulatory Limitations: no limitations Vital Signs Reviewed: Yes Nursing Notes Reviewed: Yes - History of Present Illness HPI Narrative: Patient presents to the ED with the chief complaint of chest pain. Patient reports it started 3 days ago, has been progressively worsening. Located right in his left chest, pleuritic in nature, sharp, nonradiating, also worse with movement. States he feels like his heart is racing. States he was here last week for "a stroke." But he does not remember what symptoms he was having. 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 He does admit to frequent methamphetamine use as well as heroin with his last methamphetamine use about noon today. States he just does not feel right. No fever, cough, vomiting or nausea. Does have a history of myocardial infarction , but is not have any stents. Severity scale (1-10): 8 - Related Data Home Medications Medication Instructions Recorded Confirmed Quetiapine Fumarate [Seroquel] 100 mg PO HS 12/02/17 12/23/17 Previous Rx's Medication Instructions Recorded Labetalol HCl 300 mg PO BID #60 tablet 12/10/17 Lisinopril [Zestril] 10 mg PO DAILY #30 tablet 12/10/17 Nicotine Patch [Nicoderm] 21 mg TD DAILY #30 patch.td24 12/10/17 Allergies Allergy/AdvReac Type Severity Reaction Status Date / Time Amoxicillin Allergy See Verified 12/23/17 20:29 Comments Review of Systems: As reviewed in the HPI. All other systems reviewed are negative or normal. Chest Pain PMH - Past Medical History Medical history: Reports: hypertension, myocardial infarction, renal disease Surgical history: Reports: no surgical history Psychiatric history: Reports: no psych history - Social History Smoking Status: Current every day smoker Alcohol use: Reports: occasionally Drug use: Reports: opiates, marijuana, IV Drug Use Physical Exam - General Limitations: no limitations General appearance: alert, in no apparent distress, other (Appears much older than age) - Head Head exam: atraumatic, normocephalic, normal inspection - Chest Chest inspection: Present: normal inspection, symmetric chest wall rise - Respiratory Respiratory exam: Present: normal lung sounds bilaterally - Cardiovascular Cardiovascular exam: Present: normal rhythm, tachycardia. Absent: systolic murmur - Abdominal Exam Abdominal exam: Present: soft, Non-Tender. Absent: tenderness, distention, guarding, rebound, rigidity - Extremities Exam Extremities exam: Present: normal inspection, full ROM. Absent: tenderness, pedal edema - Neurological Exam Neurological exam: Present: alert, oriented X3 - Psychiatric Psychiatric exam: Present: normal affect, normal mood, anxious - Skin Skin exam: Present: warm, dry, intact, normal color Course Course Narrative: Patient presenting to the ED with chest pain. He does have EKG changes as documented in his chart. He also admits to recent and frequent methamphetamine use. Suspecting this chest pain is likely due to this. We will treat him with benzodiazepines as well as start a workup. Patient will likely be admitted, but he did state that he may not stay. - Reevaluation(s) Reevaluation #1: Patient's troponin is normal, chest x-ray is normal. EKG is documented with concerning changes. Patient is agreeable to stay in the hospital for admission. He states that he does use methamphetamine and heroin multiple times per day and he feels like he will start withdrawing soon from heroin use. Spoke with the admitting hospitalist, and we will give him a dose of Dilaudid down here for a long-acting narcotic. We will also place him on a clonidine patch and in the meantime, give him oral clonidine until the transdermal patch. We will start taking an. We will also give him 5 mg of Haldol to help his withdrawal symptoms. Vital Signs Temperature 97.4 F L 12/23/17 19:37 Pulse Rate 110 12/23/17 19:37 Respiratory Rate 20 12/23/17 19:37 Blood Pressure 219/129 12/23/17 19:37 O2 Sat by Pulse Oximetry 95 12/23/17 19:37 Temperature 97.4 F L 12/23/17 19:37 Pulse Rate 109 12/23/17 20:30 Respiratory Rate 20 12/23/17 19:37 Blood Pressure 193/116 12/23/17 20:30 O2 Sat by Pulse Oximetry 100 12/23/17 20:30 Oxygen Delivery Oxygen Delivery Nasal Cannula Chest Pain - Medical Records Medical records reviewed: Yes I reviewed the patient's medical records. - Lab Data Lab results reviewed: Yes I reviewed the patient's lab results. Result diagrams: 12/23/17 19:40 12/23/17 19:40 Lab Results 12/23/17 12/23/17 12/23/17 Range/Units 19:40 19:40 19:40 WBC 7.1 (4.3-11.1) K/mcL RBC 6.34 H (4.19-5.50) M/mcL Hgb 15.9 (12.9-16.9) g/dL Hct 47.1 (37.5-50.1) % MCV 74.3 L (83.0-100.0) fL MCH 25.1 L (28.0-33.3) pg MCHC 33.8 (31.6-35.5) g/dL RDW 16.1 H (11.5-14.5) % Plt Count 195 (140-400) K/mcL MPV 11.2 (9.4-12.4) fL Immature Gran % 0.3 (0-4) % Seg Neutrophils % 63.4 % Lymphocytes % 27.3 % Monocytes % 7.7 % Eosinophils % 1.0 % Basophils % 0.3 % Neutrophils # 4.5 (1.6-8.9) K/mcL Lymphocytes # 1.9 (0.6-4.6) K/mcL Monocytes # 0.6 (0.0-1.3) K/mcL Eosinophils # 0.1 (0.0-0.6) K/mcL Basophils # 0.0 (0.0-0.2) K/mcL Immature Plt Fraction 4.7 (1.1-6.1) % PT 10.3 (9.4-12.1) Seconds INR 1.0 APTT 27.1 (26.0-36.0) Seconds Sodium 139 (136-145) mEq/L Potassium 4.1 (3.5-5.1) mEq/L Chloride 103 (98-107) mEq/L Carbon Dioxide 29 (23-29) mEq/L BUN 21 H (6-20) mg/dL Creatinine 1.67 H (0.70-1.30) mg/dL Est GFR ( Amer) 57 L (> 60) Est GFR (Non-Af Amer) 47 L (> 60) BUN/Creatinine Ratio 13 (6-26) Glucose 102 (70-105) mg/dL Calculated Osmolality 291 (280-300) Calcium 9.6 (8.6-10.3) mg/dL Troponin I 0.03 (< 0.04) ng/mL - Radiology Data Radiology results reviewed: Yes I reviewed the patient's radiology results. - EKG Data EKG attestation: Yes I reviewed and interpreted this EKG. EKG results narrative: Sinus tach, rate 117, per 127, QRS 85, QTC 396, normal axis, LVH, T-wave changes laterally, and in lead 2, no STEMI S.B.A.R. - S.B.A.R. Situation: Demographics, MOA Background: Presenting Complaint, Relevant PMH, Meds, & Allergies Assessment: Vital Signs, Course and respsone to treatment, Exam Concerns, Patient/Family Expectation, Pertinant Lab Results, Outstanding Labs Recommendation: Barrier(s) to disposition, Recommendation based on pending studies, treatments, or consults S.B.A.R. Report Given to: Dr. Cohen SDionne.[email or web address] Repor Time: 21:21
[2017-12-23 20:15] LABS: Calcium 9.6 mg/dL (8.6-10.3); Potassium 4.1 mEq/L (3.5-5.1)
[2017-12-23 20:16] LABS: Troponin I 0.03 ng/mL (< 0.04)
[2017-12-23] MEDS ORDERED: *HR* HYDROmorphone (PF) 1 MG/ML SYRINGE IM ONE (21:15)
[2017-12-23] MEDS ORDERED: cloNIDine HCl 0.1 MG TABLET PO ONE (21:16)
[2017-12-23] MEDS ORDERED: CloNIDine Patch 0.3 MG PATCH (WEEKLY) TD ONE (21:16)
[2017-12-23] MEDS ORDERED: Haloperidol Lactate 5 MG/ML VIAL IVP ONE (21:16)
[2017-12-24] MEDS ORDERED: 0.9 % Sodium Chloride 1,000 ML IVC SCH (01:15)
[2017-12-24] MEDS ORDERED: Naloxone 0.4 MG/ML INJ IVP PRN (02:50)
--- NOTE | 2017-12-24 03:07 | Internal Med History&Physical ---
Date of Encounter: 12/24/17 Time of Encounter: 02:15 Internal Medicine - H&P: HPI Chief complaint: chest pain; illicit drug use; altered mental status Admitted From: Emergency Dept Plans for Post Hospital Care: Home History of present illness: Mr. Brown is a 37 year old male who presented to the ER with complaints of chest pain, racing heartbeat, and illicit drug abuse in the form of heroin and methamphetamine. Workup in the ER revealed patient to have tachycardia and hypertension, both of which were uncontrolled and SBP was in excess of 200 systolic. Initial workup was negative including EKG. However, his EKG did show LVH criteria with no acute changes. He was admitted to hospitalist service. Upon my assessment of the patient, he is somnolent but arousable. He answers only 1 or 2 questions then drifts back to sleep. I am unable to obtain any history whatsoever from him. He does respond to focal command and sternal rub. He moves all 4 extremities and does not appear to be exhibiting any deficits. However, I note that on his last admission, he was found to have had evidence of a remote stroke on his head CT. Given his hypersomnolence and remote stroke on prior imaging, I am going order a STAT CT of the head and urine drug screen. I will also monitor his alcohol level and glucose levels. Past Med Surg Social Fam HX - Past Medical History Source: old records reviewed, other (ER discussion) Medical history: hypertension, myocardial infarction, renal disease, other ( illicit drug abuse) Psychiatric history: no psych history - Past Surgical History Surgical History: no surgical history - Social History Smoking Status: Current every day smoker Smokeless Tobacco Status: No Alcohol use: occasionally Drug use: opiates, marijuana, methamphetamine, IV Drug Use - Family History Father Adopted: No Living Status: Hx Family Cardiac Disorders: No Hx Family Respiratory Disorders: Yes Hx Family Cancer: Yes Hx Family GI Disorders: Yes Hx Family Endocrine Disorder: Yes Hx Family Neuromuscular Disorders: No Hx Family Neurologic Disorders: No Hx Family HEENT Disorders: No Hx Family Autoimmune Disorders: No Mother Living Status: Hx Family GI Disorders: Yes Internal Medicine - H&P: Meds Quetiapine Fumarate [Seroquel] 100 mg PO HS 12/02/17 [History] Labetalol HCl 300 mg PO BID #60 tablet 12/10/17 [Rx] Lisinopril [Zestril] 10 mg PO DAILY #30 tablet 12/10/17 [Rx] Nicotine Patch [Nicoderm] 21 mg TD DAILY #30 patch.td24 12/10/17 [Rx] 3 Allergy/AdvReac Type Severity Reaction Status Date / Time Amoxicillin Allergy See Verified 12/23/17 20:29 Comments ROS unobtainable: due to mental status - Constitutional Vitals: Temp Pulse Resp BP Pulse Ox 97.6 F 87 18 166/98 100 12/24/17 00:18 12/24/17 01:34 12/24/17 00:18 12/24/17 01:34 12/24/17 01:34 General appearance: Present: A&O X 0, no acute distress Exam: somnolent; arousable to vocal and painful stimuli, then drifts right back to sleep - Head Head exam: Present: atraumatic, normal inspection - Eye Eye exam: Present: EOMI, normal appearance, PERRL. Absent: scleral icterus Additional comments: sclera injected; pupils ~ 4-5 mm and reactive - ENT ENT exam: Present: mucous membranes dry, normal exam, normal oropharynx - Neck Neck exam general surgery: Present: full ROM, supple. Absent: lymphadenopathy, tenderness, nuchal rigidity, thyromegaly - Respiratory Respiratory exam: Present: CTAB. Absent: chest wall tenderness, rales, respiratory distress, rhonchi, wheezes - Cardiovascular Cardiovascular exam: Present: distant heart sounds, RRR, +S1, +S2. Absent: diastolic murmur, JVD, systolic murmur - GI/Abdominal GI/Abdominal exam: Present: hypoactive bowel sounds, soft. Absent: guarding, hepatomegaly, rebound, splenomegaly, tenderness - Extremities Exam Extremities exam: Present: full ROM, normal capillary refill, warm, radial pulses palpable and symmetrical. Absent: calf tenderness, joint swelling, pedal edema, tenderness - Back Exam Back exam: Absent: CVA tenderness (L), CVA tenderness (R) - Neurological Exam Neurological exam: Present: altered, no focal deficits Additional comments: somnolent; arousable; moves all 4 extremities; unable to perform adequate neurologic exam due to somnolence - Psychiatric Psychiatric exam: Present: normal affect, normal mood - Skin Skin exam: Present: dry, warm Internal Med - H&P Results - Labs CBC & Chem 7: 12/23/17 19:40 12/23/17 19:40 - EKG Data -: EKG Interpreted by Myself - EKG Data Prior EKG available for review: yes When compared to previous EKG: there is no significant change EKG comments: 12/24/17 03:21 Sinus tachycardia; LVH changes -- unchanged - Diagnostic Studies Chest x-ray Status: image reviewed by me (negative) - Assessment and plan (1) Chest pain Current Visit: Yes Status: Acute Assessment and plan: 1. Likely due to drug use/abuse. 2. Suspect due to cocaine and/or amphetamines. 3. Will cycle troponins and EKG's. 4. Recent ECHO done a few weeks ago; repeat if troponin +. 5. Will order urine drug screen as this was not done in ER. 6. Oxygen as needed. Qualifiers: Chest pain type: other chest pain Qualified Code(s): R07.89 - Other chest pain; R07.8 - Other chest pain (2) Acute encephalopathy Current Visit: Yes Status: Acute Assessment and plan: 1. Suspect due to drugs of abuse. 2. Will order urine drug screen, alcohol level, and serial glucose levels. 3. Will CT Head STAT to rule out any acute intracranial pathology. (3) Drug abuse and dependence Current Visit: Yes Status: Acute Assessment and plan: 1. As per history, he abuses chronic illicit drugs. 2. Monitor for withdrawal once more awake and coherent. 3. ER reports, patient will likely leave AMA once awake. 4. Social Work consult if he's agreeable when awake. (4) DVT prophylaxis Current Visit: Yes Status: Acute Assessment and plan: 1. Heparin SQ.
--- NOTE | 2017-12-24 03:43 | Emergency Department Note ---
Disposition Clinical Impression: Chest pain, Drug abuse and dependence Disposition: Admitted As Inpatient Condition: Fair General Adult HPI - General Chief complaint: ED Chest Pain Stated complaint: "My heart hurts" Time Seen by Provider: 12/23/17 19:56 Source: patient Mode of arrival: ambulatory Limitations: no limitations - History of Present Illness Pain Scale: 0 - Related Data Home Medications Medication Instructions Recorded Confirmed Quetiapine Fumarate [Seroquel] 100 mg PO HS 12/02/17 12/23/17 Previous Rx's Medication Instructions Recorded Labetalol HCl 300 mg PO BID #60 tablet 12/10/17 Lisinopril [Zestril] 10 mg PO DAILY #30 tablet 12/10/17 Nicotine Patch [Nicoderm] 21 mg TD DAILY #30 patch.td24 12/10/17 Allergies Allergy/AdvReac Type Severity Reaction Status Date / Time Amoxicillin Allergy See Verified 12/23/17 20:29 Comments Past Medical History - Past Medical History Medical history: Reports: hypertension, myocardial infarction, renal disease Surgical history: Reports: no surgical history Psychiatric history: Reports: no psych history - Social History Smoking Status: Current every day smoker Smokeless Tobacco Status: No Alcohol use: Reports: occasionally Drug use: Reports: opiates, marijuana, IV Drug Use Physical Exam - General Limitations: no limitations General appearance: alert, in no apparent distress, other (Appears much older than age) Course Vital Signs Temperature 97.4 F L 12/23/17 19:37 Pulse Rate 110 12/23/17 19:37 Respiratory Rate 20 12/23/17 19:37 Blood Pressure 219/129 12/23/17 19:37 O2 Sat by Pulse Oximetry 95 12/23/17 19:37 Temperature 97.6 F 12/24/17 00:18 Pulse Rate 87 12/24/17 01:34 Respiratory Rate 18 12/24/17 00:18 Blood Pressure 166/98 12/24/17 01:34 O2 Sat by Pulse Oximetry 100 12/24/17 01:34 Oxygen Delivery Oxygen Delivery Nasal Cannula Medical Decision Making - Lab Data Result diagrams: 12/23/17 19:40 12/23/17 19:40 Lab Results 12/23/17 12/23/17 12/23/17 Range/Units 19:40 19:40 19:40 WBC 7.1 (4.3-11.1) K/mcL RBC 6.34 H (4.19-5.50) M/mcL Hgb 15.9 (12.9-16.9) g/dL Hct 47.1 (37.5-50.1) % MCV 74.3 L (83.0-100.0) fL MCH 25.1 L (28.0-33.3) pg MCHC 33.8 (31.6-35.5) g/dL RDW 16.1 H (11.5-14.5) % Plt Count 195 (140-400) K/mcL MPV 11.2 (9.4-12.4) fL Immature Gran % 0.3 (0-4) % Seg Neutrophils % 63.4 % Lymphocytes % 27.3 % Monocytes % 7.7 % Eosinophils % 1.0 % Basophils % 0.3 % Neutrophils # 4.5 (1.6-8.9) K/mcL Lymphocytes # 1.9 (0.6-4.6) K/mcL Monocytes # 0.6 (0.0-1.3) K/mcL Eosinophils # 0.1 (0.0-0.6) K/mcL Basophils # 0.0 (0.0-0.2) K/mcL Immature Plt Fraction 4.7 (1.1-6.1) % PT 10.3 (9.4-12.1) Seconds INR 1.0 APTT 27.1 (26.0-36.0) Seconds Sodium 139 (136-145) mEq/L Potassium 4.1 (3.5-5.1) mEq/L Chloride 103 (98-107) mEq/L Carbon Dioxide 29 (23-29) mEq/L BUN 21 H (6-20) mg/dL Creatinine 1.67 H (0.70-1.30) mg/dL Est GFR ( Amer) 57 L (> 60) Est GFR (Non-Af Amer) 47 L (> 60) BUN/Creatinine Ratio 13 (6-26) Glucose 102 (70-105) mg/dL Calculated Osmolality 291 (280-300) Calcium 9.6 (8.6-10.3) mg/dL Troponin I 0.03 (< 0.04) ng/mL Attestation Statement - Attestation Attestation: I examined this patient and my medical decision-making was reviewed with the Resident Physician. I agree with the documented findings, disposition and treatment plan as described except to the extent set forth below. Male patient who presents with methamphetamine induced chest pain. Patient will be admitted for serial cardiac biomarkers trending and evaluation of chest pain in the setting of overdose. The patient has negative cardiac biomarkers initially. Benzodiazepines were given.
[2017-12-24 04:02] LABS: Basophils % 0.5 %; Eosinophils # 0.2 K/mcL (0.0-0.6); Eosinophils % 3.2 %; Hematocrit 38.9 % (37.5-50.1); Immature Granulocytes % 0.2 % (0-4); Lymphocytes # 2.3 K/mcL (0.6-4.6); Lymphocytes % 37.9 %; Mean Corpuscular HGB Conc 33.4 g/dL (31.6-35.5); Mean Corpuscular Hemoglobin 24.5 pg (28.0-33.3); Mean Corpuscular Volume 73.4 fL (83.0-100.0); Mean Platelet Volume 12.2 fL (9.4-12.4); Monocytes # 0.6 K/mcL (0.0-1.3); Monocytes % 9.5 %; Neutrophils # 2.9 K/mcL (1.6-8.9); Platelet Count 189 K/mcL (140-400); Red Cell Distribution Width 15.2 % (11.5-14.5); Segmented Neutrophils % 48.7 %
[2017-12-24 04:07] LABS: INR 0.9; Prothrombin Time 9.8 Seconds (9.4-12.1)
[2017-12-24 04:10] LABS: Activated Partial Thrombo Time 25.3 Seconds (26.0-36.0)
[2017-12-24 04:22] LABS: Alanine Aminotransferase 53 Units/L (7-52); Albumin 3.4 g/dL (3.5-5.7); Albumin/Globulin Ratio 1.4 (1.1-2.2); Alkaline Phosphatase 88 Units/L (34-104); Aspartate Amino Transferase 23 Units/L (13-39); BUN/Creatinine Ratio 13 (6-26); Bilirubin,Total 0.2 mg/dL (0.3-1.0); Blood Urea Nitrogen 20 mg/dL (6-20); Calcium 8.5 mg/dL (8.6-10.3); Carbon Dioxide 25 mEq/L (23-29); Chloride 108 mEq/L (98-107); Chol/HDL Ratio 2.7 (0-4.9); Cholesterol 129 mg/dL (< 200); Globulin 2.5 g/dL (2.4-3.5); Glucose 114 mg/dL (70-105); HDL Cholesterol 47 mg/dL (40-59); LDL Cholesterol,Calculated 73 mg/dL (0-99); Osmolality,Calculated 289 (280-300); Potassium 4.1 mEq/L (3.5-5.1); Sodium 138 mEq/L (136-145); Total Protein 5.9 g/dL (6.4-8.9); Triglycerides 46 mg/dL (< 150); eGFR For African Americans > 60 (> 60); eGFR For Non-African Americans 51 (> 60)
[2017-12-24] MEDS ORDERED: *HR* Heparin 5,000 UNIT/ML VIAL SQ SCH (06:00)
[2017-12-24] MEDS ORDERED: Nicotine 21 MG PATCH.TD24 TD SCH (09:00)
[2017-12-24 11:16] VITALS: BP 181/117
[2017-12-24] MEDS ORDERED: cloNIDine HCl 0.1 MG TABLET PO SCH (11:30)
--- NOTE | 2017-12-24 11:41 | Event Note ---
Date of Encounter: 12/24/17 Time of Encounter: 11:39 Patient was seen and examined. He shows signs of withdrawals. He is restless. Nauseated. He is a daily heroin user. Last used yesterday. Came in with chest discomfort as well as hypertensive emergency. We will start the patient on IV Zofran, IV Ativan, Bentyl, clonidine. We will restart the patient's lisinopril and put him on IV hydralazine to be used when necessary. Patient is at a risk of wanting to leave [place] [facility].
[2017-12-24] MEDS ORDERED: *HR* LORazepam 2 MG/ML VIAL IVP PRN (11:44)
[2017-12-24] MEDS ORDERED: Ondansetron 4 MG/2 ML VIAL IVP PRN (11:45)
--- NOTE | 2017-12-24 15:12 | Discharge Summary ---
Orders not resulted at time of discharge: Pending orders 12/24/17 02:13 Urine tox screen [Drug Screen, Urine] [UCHEM] Stat 12/24/17 06:00 ECG 12 lead ECG [ECG] AM 0600 Date of Encounter: 12/24/17 Time of Encounter: 15:10 - Discharge Diagnosis (1) Chest pain Priority: Primary Status: Acute Qualifiers: Chest pain type: other chest pain Qualified Code(s): R07.89 - Other chest pain; R07.8 - Other chest pain (2) Drug abuse and dependence Priority: Primary Status: Acute (3) Acute encephalopathy Priority: Primary Status: Acute Hospital course: Mr. Brown is a 37 year old male who has a history of hypertension and CK 82 presented to the ER with complaints of chest pain, racing heartbeat, and illicit drug abuse in the form of heroin and methamphetamine. Workup in the ER revealed patient to have tachycardia and hypertension, both of which were uncontrolled and SBP was in excess of 200 systolic. Initial workup was negative including EKG. However, his EKG did show LVH criteria with no acute changes. He was admitted to hospitalist service. Unfortunately by the following morning when I saw the patient he was threatening to leave he has medical advice despite his best pressure not being controlled. He had shown signs of heroin withdrawals. He ended up leaving AGAINST MEDICAL ADVICE on despite my efforts and the nursing staff efforts to convince him to remain hospitalized. U - Time Spent with Patient Total time spent providing and/or coordinating discharge services: - Discharge Medications Home Medications: Quetiapine Fumarate [Seroquel] 100 mg PO HS 12/02/17 [History] Labetalol HCl 300 mg PO BID #60 tablet 12/10/17 [Rx] Lisinopril [Zestril] 10 mg PO DAILY #30 tablet 12/10/17 [Rx] Nicotine Patch [Nicoderm] 21 mg TD DAILY #30 patch.td24 12/10/17 [Rx] Allergies/Adverse Reactions: 3 Allergy/AdvReac Type Severity Reaction Status Date / Time Amoxicillin Allergy See Verified 12/23/17 20:29 Comments Date of admission: 12/23/17 23:09 Primary care physician: PCP NONE - Constitutional Vitals: Temp Pulse Resp BP Pulse Ox 98 F 93 20 181/117 98 12/24/17 11:09 12/24/17 11:09 12/24/17 11:09 12/24/17 11:09 12/24/17 11:09 General appearance: Present: A&O X 0, no acute distress Exam: GEN: NAD, restless CVS: RRR. S1, S2, No m/r/g RESP: CTAB ABD: Soft, NT, ND, +BS EXT: No edema. 2+ DP. No rashes NEURO: Nonfocal - Patient Status Disposition: Left Against Medical Advice Condition: Fair - Discharge Instructions Follow Up With: NONE,PCP [Primary Care Provider] -
--- NOTE | 2017-12-27 14:43 | Electrocardiograph Report ---
[address] [place], [place] [address] Test Date: 2017-12-23 Pat Name: Rob Brown Department: 104 Room: 2A Gender: M Urologic Surgeon: SHAHNAZ : 1980 Requested By: Ha Ignacio Order Number: [id number] Reading MD: Chuy Zamora Measurements Intervals [place] Rate: 108 P: 45 [place]: 137 QRS: 62 QRSD: 84 T: 199 QT: 331 QTc: 395 Interpretive Statements SINUS TACHYCARDIA WITH OCCASIONAL VENTRICULAR PREMATURE COMPLEXES LEFT ATRIAL ENLARGEMENT LEFT VENTRICULAR HYPERTROPHY AND ST-T CHANGE Electronically Signed On 12-27-2017 14:41:31 EDT by Chuy Zamora
== END 2017-12-24 12:41 | disposition left against medical advice (07) ==
LOC: 2NENU 19:25 → EMEROO 19:25 → 2ANU 19:25
PROVIDERS: ADMIT Pediatrics; ATTEND Internal Medicine

== ENCOUNTER 2018-07-09 11:35 | Observation (INO) ==
[2018-07-09] MEDS ORDERED: Aspirin 81 MG TAB.CHEW PO ONE (11:56)
[2018-07-09] MEDS ORDERED: Ipratropium/Albuterol Neb 3 ML IH ONE (12:00)
[2018-07-09] MEDS ORDERED: predniSONE 20 MG TABLET PO ONE (12:01)
[2018-07-09] MEDS: Nitroglycerin 0.4 MG TAB.SUBL SL ONE ×3 (12:18→12:30)
--- NOTE | 2018-07-09 12:19 | Emergency Department Note ---
Disposition Clinical Impression: Elevated troponin, Substance abuse Chest pain Qualifiers: Chest pain type: unspecified Qualified Code(s): R07.9 - Chest pain, unspecified Chronic kidney disease Qualifiers: Chronic kidney disease stage: unspecified stage Qualified Code(s): N18.9 - Chronic kidney disease, unspecified Disposition: Admitted As Inpatient Condition: Fair Time of Disposition: 13:48 General Adult HPI - General Chief complaint: ED Chest Pain Stated complaint: chest pain Time Seen by Provider: 07/09/18 11:43 Source: patient Mode of arrival: ambulatory Limitations: no limitations Nursing Notes Reviewed: Yes Vital Signs Reviewed: Yes - History of Present Illness HPI Narrative: 37-year-old male with a history of hypertension, CAD with prior heart attacks, IV drug use, chronic kidney disease presents for evaluation of chest pain. Patient states pain started last night some her to his prior heart attacks. Noted to be retrosternal without radiation. No diaphoresis nausea vomiting. Patient states that he does have a history of drug use and is been on heroin and amphetamines over the past couple days. Patient does have a prior history of cocaine denies any recent cocaine use. Patient denies any fevers. Does have some shortness of breath. Patient states that he is currently going to the methadone clinic. Patient states he does have a history of endocarditis with an extensive ICU setting at [facility]. Patient states he is supposed to get a stent but is not had a stent placed. Pain Scale: 7 - Related Data Home Medications Medication Instructions Recorded Confirmed Aspirin [Adult Aspirin Regimen] 81 mg PO DAILY 07/09/18 07/09/18 Chlorthalidone 25 mg PO DAILY 07/09/18 07/09/18 Hydralazine HCl 100 mg PO 07/09/18 Isosorbide MONOnitrate (24 HR) 30 mg PO DAILY 07/09/18 07/09/18 [Imdur] Labetalol HCl 300 mg PO 07/09/18 NIFEdipine [Nifedipine ER] 60 mg PO DAILY 07/09/18 07/09/18 Allergies Allergy/AdvReac Type Severity Reaction Status Date / Time Amoxicillin Allergy See Verified 07/09/18 11:41 Comments All systems ED: reviewed and negative except as stated. Constitutional: Denies: fever, chills Cardiovascular: Reports: chest pain Respiratory: Reports: dyspnea Gastrointestinal: Denies: abdominal pain, nausea, vomiting Past Medical History - Past Medical History Source: patient Medical history: Reports: hypertension, myocardial infarction, renal disease Surgical history: Reports: no surgical history Psychiatric history: Reports: anxiety, depression, prior suicide attempt, previous psychiatric hospitalization - Social History Smoking Status: Current every day smoker Smokeless Tobacco Status: No Alcohol use: Reports: occasionally Drug use: Reports: opiates, marijuana, IV Drug Use Physical Exam - General Limitations: no limitations General appearance: alert, in no apparent distress - Head Head exam: atraumatic, normocephalic, normal inspection - Eye Eye exam: Present: normal appearance, PERRL, EOMI - ENT ENT exam: normal exam - Neck Neck exam: Present: normal inspection, trachea midline - Chest Chest inspection: Present: normal inspection, symmetric chest wall rise - Respiratory Respiratory exam: Present: wheezes (Scattered expiratory wheeze). Absent: resp iratory distress - Cardiovascular Cardiovascular exam: Present: regular rate, normal rhythm. Absent: systolic murmur - Abdominal Exam Abdominal exam: Present: soft, Non-Tender. Absent: guarding, rebound - Extremities Exam Extremities exam: Present: normal inspection. Absent: pedal edema - Expanded Lower Extremity Exam Neurovascular/Tendon exam: Present: normal capillary refill - Back Exam Back exam: Present: normal inspection - Neurological Exam Neurological exam: Present: alert, oriented X3, CN II-XII intact - Skin Skin exam: Present: warm, dry, intact, normal color Course Course Narrative: Patient seen and examined. Given the patient's prior history of endocarditis, blood cultures lactate will be obtained. Patient will also receive aerosols. Troponin cardiopulmonary screening evaluation. - Reevaluation(s) Reevaluation #1: Patient's EKG does show change from prior EKG obtained in December of this year. Does have 2 mm with concave up elevation in V2 V3 with reciprocal changes in 3 and aVF. Will discuss with the food service driver. Time: 12:25 Reevaluation #2: Patient reports Pain is a 1/10 after 3 Nitro. Time: 12:33 Reevaluation #3: Patient seen and examined following return from ultrasound. Patient denies any chest pain. Patient's agreeable with admission for chest pain in the setting of an elevated troponin. Time: 14:29 - Consultations Consultation #1: Review the EKGs with Dr. Roblero who recommended getting a stat echo. Time: 12:53 Vital Signs Temperature 98.3 F 07/09/18 11:39 Pulse Rate 97 07/09/18 11:39 Respiratory Rate 16 07/09/18 11:39 Blood Pressure 217/144 07/09/18 11:39 O2 Sat by Pulse Oximetry 99 07/09/18 11:39 Temperature 98.3 F 07/09/18 11:56 Pulse Rate 85 07/09/18 13:44 Respiratory Rate 18 07/09/18 13:44 Blood Pressure 196/129 07/09/18 13:44 O2 Sat by Pulse Oximetry 100 07/09/18 13:44 Oxygen Delivery Oxygen Delivery Room Air Medical Decision Making - MDM Narrative Medical decision making narrative: Patient presents for evaluation of chest pain. Does have history of prior heart attacks no stents placed. Patient notes chest pain was similar to his prior heart attacks. Patient received 3 nitroglycerin and improve his symptoms. Martha calles does have a history of IV drug use and does not admit any recent cocaine use. States he used meth as well as heroin in the past couple days. Patient does not have a fever or signs of infectious etiology however 3 blood cultures were obtained. Patient does not have a murmur on exam. Patient did have concerning initial EKG which review by cardiology. Recommended getting a stat echo. Patient's symptoms improved with nitroglycerin. Patient was started empirically on heparin given the elevated troponin as well as EKG changes. Patient did have ST elevation was reviewed by cardiology and did not meet STEMI criteria. Patient be admitted to the hospital service for continued evaluation and monitoring. Patient does not have any murmurs. Patient does have risk factors for endocarditis however patient has not had a fever. Blood cultures were obtained. Patient's blood pressure as well as chest pain resolves after interventions provided in the ED. Patient was started on heparin due to the elevated troponin and EKG changes. - Lab Data Lab results reviewed: Yes I reviewed the patient's lab results. Result diagrams: 07/09/18 12:09 07/09/18 12:09 Lab Results 07/09/18 07/09/18 07/09/18 Range/Units 12:09 12:09 12:09 WBC (4.3-11.1) K/mcL RBC (4.19-5.50) M/mcL Hgb (12.9-16.9) g/dL Hct (37.5-50.1) % MCV (83.0-100.0) fL MCH (28.0-33.3) pg MCHC (31.6-35.5) g/dL RDW (11.5-14.5) % Plt Count (140-400) K/mcL MPV (9.4-12.4) fL Immature Gran % (0-4) % Seg Neutrophils % % Lymphocytes % % Monocytes % % Eosinophils % % Basophils % % Neutrophils # (1.6-8.9) K/mcL Lymphocytes # (0.6-4.6) K/mcL Monocytes # (0.0-1.3) K/mcL Eosinophils # (0.0-0.6) K/mcL Basophils # (0.0-0.2) K/mcL Platelet Estimate (Normal) Immature Plt Fraction (1.1-6.1) % Hypochromasia (Not Present) Microcytosis (Not Present) PT 11.2 (9.4-12.1) Seconds INR 1.0 Heparin Anti-Xa, Unfract 0.05 L (0.30-0.70) IU/mL Sodium (136-145) mEq/L Potassium (3.5-5.1) mEq/L Chloride (98-107) mEq/L Carbon Dioxide (23-29) mEq/L BUN (6-20) mg/dL Creatinine (0.70-1.30) mg/dL Est GFR ( Amer) (> 60) Est GFR (Non-Af Amer) (> 60) BUN/Creatinine Ratio (6-26) Glucose (70-105) mg/dL Calculated Osmolality (280-300) Lactic Acid 0.7 (0.5-2.2) mmol/L Calcium (8.6-10.3) mg/dL Troponin I (< 0.04) ng/mL B-Natriuretic Peptide 231 H (Less than 100) pg/mL 07/09/18 07/09/18 Range/Units 12:09 12:09 WBC 4.3 (4.3-11.1) K/mcL RBC 5.71 H (4.19-5.50) M/mcL Hgb 13.8 (12.9-16.9) g/dL Hct 42.0 (37.5-50.1) % MCV 73.6 L (83.0-100.0) fL MCH 24.2 L (28.0-33.3) pg MCHC 32.9 (31.6-35.5) g/dL RDW 16.8 H (11.5-14.5) % Plt Count 151 (140-400) K/mcL MPV 10.8 (9.4-12.4) fL Immature Gran % 0.2 (0-4) % Seg Neutrophils % 55.0 % Lymphocytes % 34.8 % Monocytes % 8.6 % Eosinophils % 1.2 % Basophils % 0.2 % Neutrophils # 2.4 (1.6-8.9) K/mcL Lymphocytes # 1.5 (0.6-4.6) K/mcL Monocytes # 0.4 (0.0-1.3) K/mcL Eosinophils # 0.1 (0.0-0.6) K/mcL Basophils # 0.0 (0.0-0.2) K/mcL Platelet Estimate Normal (Normal) Immature Plt Fraction 6.6 H (1.1-6.1) % Hypochromasia Present A (Not Present) Microcytosis Present A (Not Present) PT (9.4-12.1) Seconds INR Heparin Anti-Xa, Unfract (0.30-0.70) IU/mL Sodium 138 (136-145) mEq/L Potassium 4.3 (3.5-5.1) mEq/L Chloride 105 (98-107) mEq/L Carbon Dioxide 24 (23-29) mEq/L BUN 24 H (6-20) mg/dL Creatinine 1.70 H (0.70-1.30) mg/dL Est GFR ( Amer) 56 L (> 60) Est GFR (Non-Af Amer) 46 L (> 60) BUN/Creatinine Ratio 14 (6-26) Glucose 87 (70-105) mg/dL Calculated Osmolality 289 (280-300) Lactic Acid (0.5-2.2) mmol/L Calcium 9.2 (8.6-10.3) mg/dL Troponin I 0.05 H* (< 0.04) ng/mL B-Natriuretic Peptide (Less than 100) pg/mL - Radiology Data Radiology results reviewed: Yes I reviewed the patient's radiology results. Chest X-Ray 07/09/18 11:56 IMPRESSION: 1. No active pulmonary disease. D/ / Roman Blanchard MD / Roman Blanchard MD Interpreting Provider: Roman Blanchard MD - EKG Data EKG #1 EKG attestation: Yes I reviewed and interpreted this EKG. EKG shows normal: sinus rhythm Rate: normal Rhythm: NSR [place]/QRS: normal ST segment elevation in: v2 (1.2mm), v3 (1.5mm) T wave inversions noted in: III, aVF When compared to previous EKG there are: changes noted Interpretation: nonspecific ST-T wave changes EKG #2 EKG attestation: Yes I reviewed and interpreted this EKG. EKG shows normal: sinus rhythm Rate: normal Rhythm: NSR [place]/QRS: normal ST segment elevation in: v1, v2, v3 When compared to previous EKG there are: changes noted Interpretation: nonspecific ST-T wave changes S.B.A.R. - S.B.A.R. Situation: Demographics Background: Presenting Complaint Assessment: Vital Signs, Course and respsone to treatment, Patient/Family Expectation Recommendation: Barrier(s) to disposition, Recommendation based on pending studies, treatments, or consults S.B.A.RMikael Report Given to: Dr. Jim Orr Repor Time: 13:48
[2018-07-09 12:25] LABS: Basophils % 0.2 %; Eosinophils # 0.1 K/mcL (0.0-0.6); Eosinophils % 1.2 %; Hemoglobin 13.8 g/dL (12.9-16.9); Immature Granulocytes % 0.2 % (0-4); Immature Platelets 6.6 % (1.1-6.1); Lymphocytes # 1.5 K/mcL (0.6-4.6); Lymphocytes % 34.8 %; Mean Corpuscular HGB Conc 32.9 g/dL (31.6-35.5); Mean Corpuscular Hemoglobin 24.2 pg (28.0-33.3); Mean Corpuscular Volume 73.6 fL (83.0-100.0); Mean Platelet Volume 10.8 fL (9.4-12.4); Monocytes # 0.4 K/mcL (0.0-1.3); Monocytes % 8.6 %; Neutrophils # 2.4 K/mcL (1.6-8.9); Platelet Count 151 K/mcL (140-400); Red Blood Count 5.71 M/mcL (4.19-5.50); Red Cell Distribution Width 16.8 % (11.5-14.5)
[2018-07-09 12:38] LABS: Prothrombin Time 11.2 Seconds (9.4-12.1)
[2018-07-09 12:50] LABS: Calcium 9.2 mg/dL (8.6-10.3); Potassium 4.3 mEq/L (3.5-5.1)
[2018-07-09 12:57] LABS: Hypochromasia Present (Not Present); Microcytosis Present (Not Present); Platelet Estimate Normal (Normal)
[2018-07-09 13:04] LABS: Troponin I 0.05 ng/mL (< 0.04)
[2018-07-09] MEDS ORDERED: *HR* Heparin 5,000 UNIT/ML VIAL IVP ONE (13:05)
[2018-07-09] MEDS ORDERED: *HR* Heparin 5,000 UNIT/ML VIAL IVP PRN ×2 (13:05)
[2018-07-09] MEDS ORDERED: Heparin 25,000 UNIT/500 ML D5W 25,000 UNIT/500 ML BAG IVC SCH (13:15)
[2018-07-09 13:18] LABS: Heparin anti-factor XA UFH 0.05 IU/mL (0.30-0.70)
--- NOTE | 2018-07-09 13:58 | Emergency Department Note ---
Disposition Clinical Impression: Elevated troponin, Substance abuse Chest pain Qualifiers: Chest pain type: unspecified Qualified Code(s): R07.9 - Chest pain, unspecified Chronic kidney disease Qualifiers: Chronic kidney disease stage: unspecified stage Qualified Code(s): N18.9 - Chronic kidney disease, unspecified Disposition: Admitted As Inpatient Condition: Fair General Adult HPI - General Chief complaint: ED Chest Pain Stated complaint: chest pain Time Seen by Provider: 07/09/18 11:43 Source: patient Mode of arrival: ambulatory Limitations: no limitations Nursing Notes Reviewed: Yes Vital Signs Reviewed: Yes - History of Present Illness Pain Scale: 7 - Related Data Home Medications Medication Instructions Recorded Confirmed Aspirin [Adult Aspirin Regimen] 81 mg PO DAILY 07/09/18 07/09/18 Isosorbide MONOnitrate (24 HR) 30 mg PO DAILY 07/09/18 07/09/18 [Imdur] NIFEdipine [Nifedipine ER] 60 mg PO DAILY 07/09/18 07/09/18 RX: Chlorthalidone 25 mg PO DAILY 07/09/18 07/09/18 RX: Hydralazine HCl 100 mg PO Q8H 07/09/18 07/09/18 RX: Labetalol HCl 300 mg PO BID 07/09/18 07/09/18 Allergies Allergy/AdvReac Type Severity Reaction Status Date / Time Amoxicillin Allergy See Verified 07/09/18 11:41 Comments Constitutional: Denies: fever, chills Cardiovascular: Reports: chest pain Respiratory: Reports: dyspnea Gastrointestinal: Denies: abdominal pain, nausea, vomiting Past Medical History - Past Medical History Medical history: Reports: hypertension, myocardial infarction, renal disease Surgical history: Reports: no surgical history Psychiatric history: Reports: anxiety, depression, prior suicide attempt, previous psychiatric hospitalization - Social History Smoking Status: Current every day smoker Smokeless Tobacco Status: No Alcohol use: Reports: occasionally Drug use: Reports: opiates, marijuana, IV Drug Use Physical Exam - General Limitations: no limitations General appearance: alert, in no apparent distress Course Vital Signs Temperature 98.3 F 07/09/18 11:39 Pulse Rate 97 07/09/18 11:39 Respiratory Rate 16 07/09/18 11:39 Blood Pressure 217/144 07/09/18 11:39 O2 Sat by Pulse Oximetry 99 07/09/18 11:39 Temperature 98.5 F 07/09/18 15:37 Pulse Rate 70 07/09/18 15:37 Respiratory Rate 18 07/09/18 15:37 Blood Pressure 222/130 07/09/18 15:37 O2 Sat by Pulse Oximetry 98 07/09/18 15:37 Oxygen Delivery Oxygen Delivery Room Air Medical Decision Making - Lab Data Result diagrams: 07/09/18 12:09 07/09/18 12:09 Lab Results 07/09/18 07/09/18 07/09/18 Range/Units 12:09 12:09 12:09 WBC (4.3-11.1) K/mcL RBC (4.19-5.50) M/mcL Hgb (12.9-16.9) g/dL Hct (37.5-50.1) % MCV (83.0-100.0) fL MCH (28.0-33.3) pg MCHC (31.6-35.5) g/dL RDW (11.5-14.5) % Plt Count (140-400) K/mcL MPV (9.4-12.4) fL Immature Gran % (0-4) % Seg Neutrophils % % Lymphocytes % % Monocytes % % Eosinophils % % Basophils % % Neutrophils # (1.6-8.9) K/mcL Lymphocytes # (0.6-4.6) K/mcL Monocytes # (0.0-1.3) K/mcL Eosinophils # (0.0-0.6) K/mcL Basophils # (0.0-0.2) K/mcL Platelet Estimate (Normal) Immature Plt Fraction (1.1-6.1) % Hypochromasia (Not Present) Microcytosis (Not Present) PT 11.2 (9.4-12.1) Seconds INR 1.0 Heparin Anti-Xa, Unfract 0.05 L (0.30-0.70) IU/mL Sodium (136-145) mEq/L Potassium (3.5-5.1) mEq/L Chloride (98-107) mEq/L Carbon Dioxide (23-29) mEq/L BUN (6-20) mg/dL Creatinine (0.70-1.30) mg/dL Est GFR ( Amer) (> 60) Est GFR (Non-Af Amer) (> 60) BUN/Creatinine Ratio (6-26) Glucose (70-105) mg/dL Calculated Osmolality (280-300) Lactic Acid 0.7 (0.5-2.2) mmol/L Calcium (8.6-10.3) mg/dL Troponin I (< 0.04) ng/mL B-Natriuretic Peptide 231 H (Less than 100) pg/mL 07/09/18 07/09/18 Range/Units 12:09 12:09 WBC 4.3 (4.3-11.1) K/mcL RBC 5.71 H (4.19-5.50) M/mcL Hgb 13.8 (12.9-16.9) g/dL Hct 42.0 (37.5-50.1) % MCV 73.6 L (83.0-100.0) fL MCH 24.2 L (28.0-33.3) pg MCHC 32.9 (31.6-35.5) g/dL RDW 16.8 H (11.5-14.5) % Plt Count 151 (140-400) K/mcL MPV 10.8 (9.4-12.4) fL Immature Gran % 0.2 (0-4) % Seg Neutrophils % 55.0 % Lymphocytes % 34.8 % Monocytes % 8.6 % Eosinophils % 1.2 % Basophils % 0.2 % Neutrophils # 2.4 (1.6-8.9) K/mcL Lymphocytes # 1.5 (0.6-4.6) K/mcL Monocytes # 0.4 (0.0-1.3) K/mcL Eosinophils # 0.1 (0.0-0.6) K/mcL Basophils # 0.0 (0.0-0.2) K/mcL Platelet Estimate Normal (Normal) Immature Plt Fraction 6.6 H (1.1-6.1) % Hypochromasia Present A (Not Present) Microcytosis Present A (Not Present) PT (9.4-12.1) Seconds INR Heparin Anti-Xa, Unfract (0.30-0.70) IU/mL Sodium 138 (136-145) mEq/L Potassium 4.3 (3.5-5.1) mEq/L Chloride 105 (98-107) mEq/L Carbon Dioxide 24 (23-29) mEq/L BUN 24 H (6-20) mg/dL Creatinine 1.70 H (0.70-1.30) mg/dL Est GFR ( Amer) 56 L (> 60) Est GFR (Non-Af Amer) 46 L (> 60) BUN/Creatinine Ratio 14 (6-26) Glucose 87 (70-105) mg/dL Calculated Osmolality 289 (280-300) Lactic Acid (0.5-2.2) mmol/L Calcium 9.2 (8.6-10.3) mg/dL Troponin I 0.05 H* (< 0.04) ng/mL B-Natriuretic Peptide (Less than 100) pg/mL Attestation Statement - Attestation Attestation: Resident Attestation: I examined this patient and my medical decision making was reviewed with the Resident Physician. I agree with the documented findings, disposition and treatment plan as described except to the extent set forth below. We independently had [id number] contact with the patient. Resident Physician Dr. John Lin Please see resident note for further details and disposition. 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 Patient states his blood pressure typically runs 222-30. He is on multiple blood pressure medications. He is supposed to be taking in there but it gives him a headache and makes him feel dizzy so he does not take this on a daily basis. He was at the methadone clinic today getting his medication when they noticed his blood pressure of 240 and asked him about chest pain which she said he was having and recommended he come to the hospital for evaluation. Patient states that he does have a history of endocarditis as well. He has been treated at [place] in the ICU for 2 weeks previously. He states that he was supposed to go to [place] last month to get a cardiac stent as well as a pacemaker. Due to his social situation he was not able to get a ride to [place] and did not have this performed. His chest pain today was a 6 out of 10 when he arrived. He was given 3 nitroglycerin and his chest pain he describes as less than a 1 but not completely resolved. He does not appear to be in any acute distress. His EKG did have concerning elevations in the anterior leads. This was discussed with cardiology by the resident physician Dr. Lin and cardiology recommended a stat echo as they are concerning changes but not consistent with STEMI criteria. Blood work is pending. Awake alert and oriented 3, conversational, pleasant, regular rate and rhythm without specific murmur, lungs with mild diffuse wheezing. No significant lower extremity edema. On further questioning he has had generalized malice without specific fevers. He has never been officially diagnosed with asthma or COPD but is concerned that he does has have this and does want an inhaler to go home with. Given the patient's EKG changes as well as elevated troponin and significant elevated blood pressure he will require admission to help further rule out both endocarditis as well as cardiac ischemia. Patient is in agreement to stay.
[2018-07-09] MEDS ORDERED: Naloxone 0.4 MG/ML INJ IVP PRN (14:50)
[2018-07-09] MEDS ORDERED: Acetaminophen 325 MG TABLET PO PRN (14:50)
[2018-07-09] MEDS ORDERED: Nitroglycerin 0.4 MG TAB.SUBL SL PRN (14:50)
--- NOTE | 2018-07-09 14:50 | Internal Med History&Physical ---
Date of Encounter: 07/09/18 Time of Encounter: 14:41 Internal Medicine - H&P: HPI Chief complaint: chest pain Admitted From: Home Plans for Post Hospital Care: Home History of present illness: Mr. Brown is a 37 year old male with past medical history of substance abuse (methamphetamine, heroine, weed), NH, stroke, CKD stage III who presents with chest pain that started last night. Pt reports being SOB and feeling d iaphoretic. He admits to nausea but denies vomiting. States he has not eaten in 2 days. Pt states he did heroine a couple of days ago and he did meth a few days ago. He admits to being and IV drug. Pt states he has never been tested for hepatitis or HIV. Pt states " he knew he was going to have chest pain." Reports CP radiating to his back. Denies radiation to neck, jaw, or his upper extremity. Lozano scale 8/10. Pt given nitro SL in ED and pain down to 1/10 now. Pt states he is homeless and has been for 5 months. Pt states he smokes 1/2 pack per day for 30 years. Denies heavy ETOH use. Pt states he was admitted to [facility] 2014. He states he had an appointment to have stent and pacemaker placed about one month ago at [place]. States his mother who was supposed to be his ride declined to take him fo his appointment. In ED Troponin 0.05, PT 11.2, INR 1.0. Na 138, K 4.3, BUN 24, Cr 1.70, BNP 231. WBC 4.3, Hgb 5.71, plt 151 EKG concerning for elevations in anterior leads Chest x ray XR/XR chest 1V portable IMPRESSION: 1. No active pulmonary disease. Past Med Surg Social Fam HX - Past Medical History Medical history: hypertension, myocardial infarction, renal disease Additional medical history: stage IV renal failure Psychiatric history: anxiety, depression, prior suicide attempt, previous psychiatric hospitalization - Past Surgical History Surgical History: no surgical history - Social History Smoking Status: Current every day smoker Smokeless Tobacco Status: No Alcohol use: occasionally Drug use: opiates, marijuana, IV Drug Use - Family History Father Adopted: No Living Status: Hx Family Cardiac Disorders: No Hx Family Respiratory Disorders: Yes Hx Family Cancer: Yes Hx Family GI Disorders: Yes Hx Family Endocrine Disorder: Yes Hx Family Neuromuscular Disorders: No Hx Family Neurologic Disorders: No Hx Family HEENT Disorders: No Hx Family Autoimmune Disorders: No Mother Living Status: Hx Family GI Disorders: Yes Internal Medicine - H&P: Meds Aspirin [Adult Aspirin Regimen] 81 mg PO DAILY 07/09/18 [History] Chlorthalidone 25 mg PO DAILY 07/09/18 [History] Hydralazine HCl 100 mg PO Q8H 07/09/18 [History] Isosorbide MONOnitrate (24 HR) [Imdur] 30 mg PO DAILY 07/09/18 [History] Labetalol HCl 300 mg PO BID 07/09/18 [History] NIFEdipine [Nifedipine ER] 60 mg PO DAILY 07/09/18 [History] Allergy/AdvReac Type Severity Reaction Status Date / Time Amoxicillin Allergy See Verified 07/09/18 11:41 Comments All Systems PM: A 10-system review of systems was performed and is negative for pertinent findings except as documented above in the HPI. - Constitutional Vitals: Temp Pulse Resp BP Pulse Ox 98.3 F 85 18 196/129 100 07/09/18 11:56 07/09/18 13:44 07/09/18 13:44 07/09/18 13:44 07/09/18 13:44 General appearance: Present: A&O X 3, no acute distress Exam: . - Head Head exam: Present: atraumatic, normocephalic - Eye Eye exam: Present: PERRL, conjuntiva pink, sclera anicteric Pupils: Present: PERRL - Neck Neck exam general surgery: Present: supple, trachea midline. Absent: lymphadenopathy - Respiratory Respiratory exam: Present: CTAB. Absent: accessory muscle use, rales, rhonchi, wheezes - Cardiovascular Cardiovascular exam: Present: RRR, +S1, +S2. Absent: diastolic murmur, gallop, rubs, systolic murmur - GI/Abdominal GI/Abdominal exam: Present: normal bowel sounds, soft, no peritoneal signs. Absent: distended, tenderness - Extremities Exam Extremities exam: Present: warm, radial pulses palpable and symmetrical. Absent : calf tenderness, cyanotic, pedal edema - Neurological Exam Neurological exam: Present: CN II-XII intact, oriented X3, no focal deficits. Absent: pronater drift, facial droop, speech deficit - Skin Skin exam: Present: dry, intact Additional comments: Multiple skin tattoos Internal Med - H&P Results - Labs CBC & Chem 7: 07/09/18 12:09 07/09/18 12:09 Labs: Short CBC 07/09/18 Range/Units 12:09 WBC 4.3 (4.3-11.1) K/mcL Hgb 13.8 (12.9-16.9) g/dL Hct 42.0 (37.5-50.1) % Plt Count 151 (140-400) K/mcL Neutrophils # 2.4 (1.6-8.9) K/mcL BMP 07/09/18 12:09 Sodium 138 Potassium 4.3 Chloride 105 Carbon Dioxide 24 BUN 24 H Creatinine 1.70 H Glucose 87 Calcium 9.2 Cardiac Enzymes 07/09/18 Range/Units 12:09 Troponin I 0.05 H* (< 0.04) ng/mL - Impressions ITS Impressions Chest X-Ray 07/09/18 11:56 IMPRESSION: 1. No active pulmonary disease. D/ / Roman Blanchard MD / Roman Blanchard MD Interpreting Provider: Roman Blanchard MD - Assessment and plan (1) Chest pain Current Visit: Yes Status: Acute Assessment and plan: Hx CAD and s/p stents Will cycle. Cardiology notified by ED staff. Cardiology ordered STAT echo. Pt has not been taking his medication in months. Nitro SL prn. ASA daily, lipid panel in am Qualifiers: Chest pain type: unspecified Qualified Code(s): R07.9 - Chest pain, unspecified (2) Elevated troponin Current Visit: Yes Status: Acute Assessment and plan: Hx CAD and s/p stents Will cycle. Cardiology notified by ED staff. Pt has not been taking his medication in months. Nitro SL prn. ASA daily, lipid panel in am. (3) Hypertensive emergency Current Visit: No Status: Acute Assessment and plan: Pt has 5 BP medications listed. Chlorthalidone, Hydralazine, Imdur, labetolol, and Nifedipine. Will gradually re introduce BP medication one at a time. Resuming Labetolol, Nifedipine, and hydralazine for now. (4) CKD (chronic kidney disease) Current Visit: Yes Status: Chronic Assessment and plan: CKD stage III. baseline Cr is about 1.7. Will monitor renal function for now. Qualifiers: Chronic kidney disease stage: unspecified stage Qualified Code(s): N18.9 - Chronic kidney disease, unspecified (5) Drug abuse and dependence Current Visit: No Status: Acute Assessment and plan: Pt admits to hx of IV drug use. Cessation strongly advised. Urine toxicology results pending - Time Spent With Patient Total time spent is greater than 50% in coordination of care (as documented) at patient's floor/unit and/or counseling patient: 25 - 35 minutes
[2018-07-09] MEDS ORDERED: HYDRALAZINE HCL 100 MG PO SCH (15:30)
[2018-07-09 15:39] VITALS: BP 222/130
--- NOTE | 2018-07-09 15:58 | Cardiology Consult Note ---
<Albert Valdes R - Last Filed: 07/09/18 16:23> Date of Encounter: 07/09/18 Time of Encounter: 15:47 Assessment and Plan (1) Elevated troponin Status: Acute Initial troponin is borderline--0.05 in setting of hypertensive urgency with BP 218/137 and CKD. Trend for total of 3. Demand ischemia, nondiagnostic for ACS. Started on heparin gtt by primary team. ECG does not meet STEMI criteria. LVH noted. STAT TTE EF is preserved, 55-60% with moderate LVH. Pt initially reports he was planned to have LHC and PPM at [facility] last month, then admits to not being seen there since 2014. Records from [facility] and [facility] reviewed in eCW. Stress test negative for ischemia or infarct 01/2018 at [facility]. No mention in their notes of LHC or PPM. No indication currently. Recommend medication compliance and opimizing BP. (2) Chest pain Status: Acute As HPI, CP in setting of hypertensive urgency BP 218/137. Borderline troponin. TTE EF preserved. Negative stress test 01/2018 at outside facility. Polysubstance abuse. Do not anticipate any further ischemic evaluation. Qualifiers: Chest pain type: unspecified Qualified Code(s): R07.9 - Chest pain, unspecified (3) Hypertensive urgency Status: Acute BP 218/137 on presentation. Most recent reading 200s/100s. Per pt, states BP is always 200s/100s. Noncompliant with home meds of Hydralazine 100mg PO [id number], Chlorthalidone 25mg PO daily, Imdur 30 PO daily, Labetalol 300mg PO BID, Nifedipine 60mg PO daily. Discussed with Dr. Aguirre. Unlikely pt will take meds more than daily given his noncompliance. Will start Norvasc 10mg daily. PRN IV Hydralazine 10mg [id number]. Continue Chlorthalidone 25mg daily. Stop Imdur, Labetalol and Nifedipine. Goal BP in 2 hours will be 170-180 systolic. Continue to follow. Discussion w patient/family: The assessment and plan as outlined above was discussed with the patient and/or family members who expressed understanding and agreement. All questions were answered. Thank you for involving us in the care of your patient. Please call with any questions. I will discuss all the above with Dr. Aguirre and make changes as necessary. History of Present Illness Consult date: 07/09/18 Consult reason: elevated troponin, ecg concerns Chief complaint: chest pain History of present illness: Mr. Brown is a 37 year old male with PMH of polysubstance abuse (methamphetamine, heroine, marijuana), AK, CVA, CKD stage III who presents with chest pain that started last night. Pt reports being SOB and feeling diaphoretic. He admits to nausea but denies vomiting. States he has not eaten in 2 days. Admits to using heroine a couple of days ago as well as meth. Admits to IVDU. Reports chest pain was left sided, sharp and constant, 8/10. Pt given nitro SL in ED and CP eventually resolved, currently CP free. Reports he is homeless and has been for 5 months. He smokes 1/2 PPD for 30 years. He admits to medication noncompliance and missed his antihypertensive meds for 2-3 days. Initial concern in ED was ECG, possible STEMI criteria. Reviewed and does not meet criteria. Significant LVH. STAT TTE was obtained. EF is preserved, 55-60%, moderate cLVH, mild MR. Troponin 0.05. BP was 218/137 on presentation. Records reviewed in eCW. Pt was hospitalized at [facility] in 2014 and at [facility] 01/2018. Pt reports he was supposed to have a LHC and pacemaker at [facility] last month, but then admits to not being seen there since 2014. Stress test 01/2018 at [facility] was negative for ischemia or infarct. They recommended outpt follow-up for med titrations, but their notes did not recommend PPM or LHC. Cardiology consulted for further recs. Past Med Surg Social Fam HX - Past Medical History Medical history: hypertension, myocardial infarction, renal disease Additional medical history: stage IV renal failure Psychiatric history: anxiety, depression, prior suicide attempt, previous psychiatric hospitalization - Past Surgical History Surgical History: no surgical history - Social History Smoking Status: Current every day smoker Smokeless Tobacco Status: No Alcohol use: occasionally Drug use: opiates, marijuana, IV Drug Use - Family History Father Adopted: No Living Status: Hx Family Cardiac Disorders: No Hx Family Respiratory Disorders: Yes Hx Family Cancer: Yes Hx Family GI Disorders: Yes Hx Family Endocrine Disorder: Yes Hx Family Neuromuscular Disorders: No Hx Family Neurologic Disorders: No Hx Family HEENT Disorders: No Hx Family Autoimmune Disorders: No Mother Living Status: Hx Family GI Disorders: Yes Medications and Allergies Aspirin [Adult Aspirin Regimen] 81 mg PO DAILY 07/09/18 [History] Isosorbide MONOnitrate (24 HR) [Imdur] 30 mg PO DAILY 07/09/18 [History] NIFEdipine [Nifedipine ER] 60 mg PO DAILY 07/09/18 [History] RX: Chlorthalidone 25 mg PO DAILY 07/09/18 [History] RX: Hydralazine HCl 100 mg PO Q8H 07/09/18 [History] RX: Labetalol HCl 300 mg PO BID 07/09/18 [History] Allergy/AdvReac Type Severity Reaction Status Date / Time Amoxicillin Allergy See Verified 07/09/18 11:41 Comments All Systems Review: The remainder of the systems were reviewed and are negative - Cardiovascular Cardiovascular: as per HPI, chest pain at rest, chest pain with exertion, diaphoresis Physical Examination Vital Signs, Last 4 Hours Temp Pulse Resp BP Pulse Ox 07/09/18 15:37 98.5 F 70 18 222/130 98 07/09/18 13:44 85 18 196/129 100 07/09/18 13:12 82 17 189/121 98 07/09/18 13:02 71 15 200/105 98 07/09/18 12:24 83 16 186/130 97 07/09/18 12:20 73 16 218/137 100 07/09/18 12:06 212/147 07/09/18 12:01 167/143 07/09/18 11:56 98.3 F 97 16 217/144 99 Vital Signs Temp Pulse Resp BP Pulse Ox 07/09/18 15:37 98.5 F 70 18 222/130 98 07/09/18 13:44 85 18 196/129 100 07/09/18 13:12 82 17 189/121 98 07/09/18 13:02 71 15 200/105 98 07/09/18 12:24 83 16 186/130 97 07/09/18 12:20 73 16 218/137 100 07/09/18 12:06 212/147 07/09/18 12:01 167/143 07/09/18 11:56 98.3 F 97 16 217/144 99 07/09/18 11:39 98.3 F 97 16 217/144 99 Intake and Output 07/09/18 07/09/18 07/09/18 07:59 15:59 23:59 Other: Weight 71.214 kg Patient Weight 07/09/18 23:59 Weight 71.214 kg General: Conversant, No Apparent Distress HEENT: Atraumatic, Normocephaly, Mucus Membranes Moist Neck: No JVD, Normal carotid pulses Cardiac: Reg Rate and Rhythm, Normal S1 and S2, No Murmur Lungs: Normal Breath Sounds, No Wheeze, Rales, Rhonchi Neuro: Alert and responsive, No focal deficits noted Abdomen: Soft, Non-Tender Skin: No rashes noted on visualized skin Musculoskeletal: No Chest Wall Tenderness Extremities: No Clubbing, No Cyanosis, No Edema, Normal Pulses Results 07/09/18 12:09 07/09/18 12:09 Lab Results 07/09/18 07/09/18 07/09/18 12:09 12:09 12:09 WBC 4.3 Hgb 13.8 Hct 42.0 Plt Count 151 INR 1.0 Sodium Potassium Chloride Carbon Dioxide BUN Creatinine Glucose Calcium Troponin I B-Natriuretic Peptide 231 H 07/09/18 12:09 WBC Hgb Hct Plt Count INR Sodium 138 Potassium 4.3 Chloride 105 Carbon Dioxide 24 BUN 24 H Creatinine 1.70 H Glucose 87 Calcium 9.2 Troponin I 0.05 H* B-Natriuretic Peptide Short CBC 07/09/18 Range/Units 12:09 WBC 4.3 (4.3-11.1) K/mcL Hgb 13.8 (12.9-16.9) g/dL Hct 42.0 (37.5-50.1) % Plt Count 151 (140-400) K/mcL Neutrophils # 2.4 (1.6-8.9) K/mcL BMP 07/09/18 Range/Units 12:09 Sodium 138 (136-145) mEq/L Potassium 4.3 (3.5-5.1) mEq/L Chloride 105 (98-107) mEq/L Carbon Dioxide 24 (23-29) mEq/L BUN 24 H (6-20) mg/dL Creatinine 1.70 H (0.70-1.30) mg/dL Glucose 87 (70-105) mg/dL Calcium 9.2 (8.6-10.3) mg/dL Cardiac Enzymes 07/09/18 Range/Units 12:09 Troponin I 0.05 H* (< 0.04) ng/mL Impressions Chest X-Ray 07/09/18 11:56 IMPRESSION: 1. No active pulmonary disease. D/ / Roman Blanchard MD / Roman Blanchard MD Interpreting Provider: Roman Blanchard MD Echocardiogram 07/09/18 12:53 Impressions: LVEF 55-60%. Moderate concentric left ventricular hypertrophy. Normal left ventricular diastolic function. Normal right ventricular structure and function. Mild mitral regurgitation. Unable to estimate RVSP due to lack of TR jet. Left Ventricular Wall Motion: Rest Echo Findings All wall segments showed normal motion. Findings: Study Quality * Technically adequate exam. ECG Findings * Normal sinus rhythm. Left Ventricle * LVEF 55-60%. * Moderate concentric left ventricular hypertrophy. * Normal left ventricular diastolic function. Right Ventricle * Normal right ventricular structure and function. Left Atrium * Normal left atrial size. Right Atrium * Normal right atrial size. Interatrial Septum * No evidence of PFO by color Doppler. Aortic Valve * Trileaflet aortic valve. * Normal aortic valve structure. * No aortic regurgitation. * No aortic stenosis. Mitral Valve * Normal mitral valve structure. * No mitral stenosis. * Mild mitral regurgitation. Tricuspid Valve * Normal tricuspid valve structure. * No tricuspid regurgitation. * No tricuspid stenosis. * Unable to estimate RVSP due to lack of TR jet. Pulmonic Valve * Normal pulmonic valve structure. * No pulmonic regurgitation. Aorta * Normally sized aortic root. Pericardium * The pericardium appears normal. IVC * Normal IVC dimensions and inspiratory collapse. Pulmonary Artery * Normal visualized portions of the main pulmonary artery. Active Medications Acetaminophen (Tylenol) 650 mg PO Q6HR PRN PRN Reason: Mild Pain/Fever Stop: 01/08/19 14:51 Aspirin (Aspirin) 81 mg PO DAILY [facility] Stop: 01/09/19 09:01 Heparin Sodium (Porcine) (Heparin) 4,000 unit IVP Q6HR PRN PRN Reason: SEE COMMENTS Stop: 01/08/19 13:06 Heparin Sodium (Porcine) (Heparin) 2,000 unit IVP Q6H PRN PRN Reason: SEE COMMENTS Stop: 01/08/19 13:06 Heparin Sodium/Dextrose (Heparin 25,000 Unit/500 Ml D5w) 25,000 unit in 500 mls @ 17.091 mls/hr IVC .Q24H [facility]; Protocol Stop: 01/08/19 13:16 Last Admin: 07/09/18 13:40 Dose: 12 unit/kg/hr, 17.091 mls/hr Naloxone HCl (Narcan) 0.4 mg IVP Q2MIN PRN PRN Reason: SEE COMMENTS Stop: 01/08/19 14:51 Nitroglycerin (Nitroglycerin) 0.4 mg SL Q5MIN PRN PRN Reason: Chest Pain Stop: 01/08/19 14:51 Non-Formulary Medication (Hydralazine Hcl [Hydralazine Hcl]) 100 mg PO Q8H [facility] Stop: 01/08/19 15:31 Non-Formulary Medication (Labetalol Hcl [Labetalol Hcl]) 300 mg PO BID [facility] Stop: 01/08/19 21:01 Non-Formulary Medication (Nifedipine [Nifedipine Er]) 60 mg PO DAILY [facility] Stop: 01/09/19 09:01 - Imaging and Cardiology Stress Test: report reviewed Echo: report reviewed - EKG Interpretation EKG results cardiology: personally reviewed (SR, LVH) Consult Discharge Plan - Plan Referrals: NONE,PCP [Primary Care Provider] - <Helen Aguirre - Last Filed: 07/09/18 19:51> - Attending Attestation Patient was seen and evaluated independently by me. Findings, assessment and plan were discussed at length with patient, questions answered. Agree with nurse practitioner's/resident's documentation. Addition as follows, 37 yoAAM ho drug use including IVDU, HTN, CKD3, med noncompliance. P.w cp, dyspnea. BP 200s/100s. ECG transient ALEX aVL with STD III. Trop 0.05. TTE EF 55%, mod LVH, mild MR. 2018 OSH stress test neg for ischemia and infarct A: Chest pain likely due to hypertensive emergency NSTEMI, likely type II P: Utox decrease BP 15% first 2 hours with amlodipine, thiazide and hydralazine iv cycle trop till downtrending no LHC unless recurrent CP with dynamic ECG changes after BP ctr Helen Aguirre MD, PhD Assessment and Plan Discussion w patient/family: The assessment and plan as outlined above was discussed with the patient and/or family members who expressed understanding and agreement. All questions were answered. Thank you for involving us in the care of your patient. Please call with any questions. History of Present Illness History of present illness: Mr. Brown is a 37 year old male All Systems Review: The remainder of the systems were reviewed and are negative Results 07/09/18 12:09 07/09/18 12:09 Lab Results 07/09/18 07/09/18 07/09/18 12:09 12:09 12:09 WBC 4.3 Hgb 13.8 Hct 42.0 Plt Count 151 INR 1.0 Sodium Potassium Chloride Carbon Dioxide BUN Creatinine Glucose Calcium Troponin I B-Natriuretic Peptide 231 H 07/09/18 07/09/18 12:09 15:32 WBC Hgb Hct Plt Count INR Sodium 138 Potassium 4.3 Chloride 105 Carbon Dioxide 24 BUN 24 H Creatinine 1.70 H Glucose 87 Calcium 9.2 Troponin I 0.05 H* 0.05 H* B-Natriuretic Peptide
[2018-07-09] MEDS ORDERED: amLODIPine 5 MG TABLET PO SCH (16:30)
[2018-07-09 17:54] LABS: Hepatitis A Antibody IgM Nonreactive (Nonreactive); Hepatitis B Core IgM Nonreactive (Nonreactive); Hepatitis B Surface Antigen Nonreactive (Nonreactive)
[2018-07-09 17:58] LABS: Hepatitis C Virus Antibody Reactive (Nonreactive)
[2018-07-09] MEDS ORDERED: NON-FORMULARY MEDICATION 1 EACH EACH (Labetalol Hcl [Labetalol Hcl] 300 MG) PO SCH (21:00)
[2018-07-10] MEDS ORDERED: NIFEDIPINE 60 MG PO SCH (09:00)
[2018-07-10] MEDS ORDERED: Aspirin 81 MG TAB.CHEW PO SCH (09:00)
[2018-07-10] MEDS ORDERED: Isosorbide MONOnitrate (24 HR) 30 MG TAB.ER.24H PO SCH (09:00)
--- NOTE | 2018-07-10 19:16 | Event Note ---
Date of Encounter: 07/10/18 Time of Encounter: 06:04 Received call from Microbiology informing of 1 out of 2 positive blood cultures with gram positive rods, likely contaminant, patient left [facility] 07/09/2018, no notification necessary, discussed with Dr Bardales.
--- NOTE | 2018-07-10 21:16 | Electrocardiograph Report ---
[address] [place], [place] [address] Test Date: 2018-07-09 Pat Name: Rob Brown Department: EXAM5 Room: 3B66 Gender: M Record Maker: : [id number] Requested By: Jeffrey Hopper Order Number: [id number] Reading MD: Awilda Zimmerman Measurements Intervals [place] Rate: 78 P: 60 [place]: 126 QRS: 69 QRSD: 93 T: -22 QT: 405 QTc: 462 Interpretive Statements Sinus rhythm Left atrial enlargement Left ventricular hypertrophy Borderline T abnormalities, inferior leads ST elevation, consider anterior injury Electronically Signed On 07-10-2018 21:15:08 EDT by Awilda Zimmerman
== END 2018-07-09 18:46 | disposition left against medical advice (07) ==
LOC: EMEROOARM 11:35 → 3BNU 11:35
PROVIDERS: ADMIT Internal Medicine; ATTEND Internal Medicine

== ENCOUNTER 2019-04-26 22:40 | Inpatient (IN) ==
[2019-04-26] MEDS ORDERED: Isovue-370 500 ML BOTTLE IVP ONE (23:02)
[2019-04-26 23:40] LABS: Prothrombin Time 11.8 Seconds (9.4-12.1)
[2019-04-26 23:49] LABS: Basophils % 0.6 %; Eosinophils # 0.1 K/mcL (0.0-0.6); Eosinophils % 1.8 %; Hemoglobin 10.9 g/dL (12.9-16.9); Immature Granulocytes % 0.5 % (0-4); Lymphocytes # 1.6 K/mcL (0.6-4.6); Lymphocytes % 25.7 %; Mean Corpuscular HGB Conc 32.1 g/dL (31.6-35.5); Mean Corpuscular Hemoglobin 23.3 pg (28.0-33.3); Mean Corpuscular Volume 72.6 fL (83.0-100.0); Mean Platelet Volume 10.6 fL (9.4-12.4); Monocytes # 0.6 K/mcL (0.0-1.3); Monocytes % 9.2 %; Neutrophils # 3.9 K/mcL (1.6-8.9); Platelet Count 275 K/mcL (140-400); Red Blood Count 4.68 M/mcL (4.19-5.50); Red Cell Distribution Width 17.2 % (11.5-14.5); Segmented Neutrophils % 62.2 %; White Blood Count 6.2 K/mcL (4.3-11.1)
[2019-04-26] MEDS ORDERED: 0.9 % Sodium Chloride 1,000 ML IVC ONE (23:50)
[2019-04-26 23:51] LABS: Albumin 3.4 g/dL (3.5-5.7); Albumin/Globulin Ratio 1.2 (1.1-2.2); Bilirubin,Total 0.5 mg/dL (0.3-1.0); Calcium 8.5 mg/dL (8.6-10.3); Globulin 2.9 g/dL (2.4-3.5); Magnesium 1.9 mg/dL (1.6-2.6); Potassium 3.3 mEq/L (3.5-5.1); Total Protein 6.3 g/dL (6.4-8.9)
[2019-04-26 23:58] LABS: Troponin I 0.1 ng/mL (< 0.04)
[2019-04-27 00:17] LABS: Bilirubin,Urine Negative (Negative); Blood,Urine Negative (Negative); Clarity,Urine Clear (Clear); Color,Urine Yellow (Yellow); Glucose,Urine (UA) Normal (Normal); Ketones,Urine Negative (Negative); Leukocyte Esterase,Urine Negative (Negative); Nitrite,Urine Negative (Negative); Protein,Urine 30 mg/dL (Neg-Trace); Specific Gravity,Urine 1.013 (1.010-1.025); Urobilinogen,Urine Normal (Normal)
[2019-04-27 00:19] LABS: Bacteria,Urine None Seen per hpf (None-Few); Hyaline Casts,Urine None Seen per lpf (None-Few); RBC,Urine 0-3 per hpf (0-3); Squamous Epithelial Cell,Urine None Seen per lpf (None-Few); WBC,Urine 0-3 per hpf (0-3)
[2019-04-27] MEDS ORDERED: Aspirin 325 MG TABLET PO ONE (00:48)
[2019-04-27] MEDS ORDERED: *HR* Heparin 5,000 UNIT/ML VIAL IVP ONE (00:53)
[2019-04-27] MEDS ORDERED: *HR* Heparin 5,000 UNIT/ML VIAL IVP PRN (00:53)
[2019-04-27] MEDS ORDERED: Ipratropium/Albuterol Neb 3 ML IH ONE (01:11)
[2019-04-27 01:15] LABS: Hematocrit 33.7 % (37.5-50.1); Hemoglobin 10.8 g/dL (12.9-16.9); Mean Corpuscular Hemoglobin 22.9 pg (28.0-33.3); Mean Corpuscular Volume 71.5 fL (83.0-100.0); Mean Platelet Volume 9.8 fL (9.4-12.4); Platelet Count 221 K/mcL (140-400); Red Blood Count 4.71 M/mcL (4.19-5.50); Red Cell Distribution Width 17.2 % (11.5-14.5); White Blood Count 6.2 K/mcL (4.3-11.1)
[2019-04-27 01:23] LABS: Heparin anti-factor XA UFH 0.02 IU/mL (0.30-0.70); Prothrombin Time 11.7 Seconds (9.4-12.1)
[2019-04-27] MEDS: Nitroglycerin 0.4 MG TAB.SUBL SL ONE ×3 (01:55→02:09)
[2019-04-27] MEDS: niCARdipine 20 MG/200 ML MLS IVC SCH ×8 (01:57→23:32)
[2019-04-27] MEDS: Heparin 25,000 UNIT/250 ML D5W 25,000 UNIT/250 ML IV.SOLN IVC SCH ×2 (02:24→22:43)
[2019-04-27 02:54] LABS: Amphetamine Screen,Urine Positive ng/mL (Cutoff=1000); Barbiturate Screen,Urine Negative ng/mL (Cutoff=200); Benzodiazepines Screen,Urine Negative ng/mL (Cutoff=200); Cannabinoid Screen,Urine Negative ng/mL (Cutoff = 50); Cocaine Screen,Urine Negative ng/mL (Cutoff= 300); Opiate Screen,Urine Positive ng/mL (Cutoff=300); Phencyclidine Screen,Urine Negative ng/mL (Cutoff=25)
[2019-04-27] MEDS ORDERED: Naloxone 0.4 MG/ML INJ IVP PRN (03:13)
[2019-04-27] MEDS ORDERED: Nitroglycerin 0.4 MG TAB.SUBL SL PRN (03:48)
[2019-04-27 04:25] LABS: Hepatitis B Surface Antibody 3.65 mIU/mL
[2019-04-27] MEDS: Cefepime HCl 1,000 MG in Water for inj. (sterile) 10 ML IVP SCH ×2 (05:10→17:34)
[2019-04-27] MEDS: Ipratropium/Albuterol Neb 3 ML IH SCH ×4 (06:02→21:56)
[2019-04-27 06:47] LABS: Troponin I 0.1 ng/mL (< 0.04)
[2019-04-27 06:57] LABS: Hepatitis C Virus Antibody Reactive (Nonreactive)
[2019-04-27 10:55] LABS: Potassium 3.6 mEq/L (3.5-5.1)
[2019-04-27] MEDS: Acetaminophen 325 MG TABLET PO PRN (11:11)
[2019-04-27] MEDS: *HR* Heparin 5,000 UNIT/ML VIAL IVP PRN (22:41)
[2019-04-28] MEDS: niCARdipine 20 MG/200 ML MLS IVC SCH (02:46)
[2019-04-28] MEDS: Ipratropium/Albuterol Neb 3 ML IH SCH ×2 (03:45→09:23)
[2019-04-28] MEDS: Cefepime HCl 1,000 MG in Water for inj. (sterile) 10 ML IVP SCH (05:45)
[2019-04-28 06:25] LABS: Basophils % 0.6 %; Eosinophils # 0.1 K/mcL (0.0-0.6); Eosinophils % 2.7 %; Hematocrit 33.8 % (37.5-50.1); Hemoglobin 11.1 g/dL (12.9-16.9); Immature Granulocytes % 0.4 % (0-4); Lymphocytes % 37.7 %; Mean Corpuscular HGB Conc 32.8 g/dL (31.6-35.5); Mean Corpuscular Hemoglobin 23.1 pg (28.0-33.3); Mean Corpuscular Volume 70.4 fL (83.0-100.0); Mean Platelet Volume 10.7 fL (9.4-12.4); Monocytes # 0.5 K/mcL (0.0-1.3); Monocytes % 9.7 %; Neutrophils # 2.6 K/mcL (1.6-8.9); Platelet Count 282 K/mcL (140-400); Red Cell Distribution Width 17.4 % (11.5-14.5); Segmented Neutrophils % 48.9 %; White Blood Count 5.3 K/mcL (4.3-11.1)
[2019-04-28 06:31] LABS: BUN/Creatinine Ratio 9 (6-26); Blood Urea Nitrogen 13 mg/dL (6-20); Calcium 8.5 mg/dL (8.6-10.3); Carbon Dioxide 24 mEq/L (23-29); Chloride 108 mEq/L (98-107); Glucose 123 mg/dL (70-105); Osmolality,Calculated 289 (280-300); Sodium 139 mEq/L (136-145); eGFR For African Americans > 60 (> 60); eGFR For Non-African Americans 53 (> 60)
[2019-04-28] MEDS: *HR* Heparin 5,000 UNIT/ML VIAL IVP PRN (07:14)
[2019-04-28] MEDS ORDERED: Isosorbide MONOnitrate (24 HR) 30 MG TAB.ER.24H PO SCH (09:00)
[2019-04-28] MEDS: Acetaminophen 325 MG TABLET PO PRN (13:22)
[2019-04-28 14:37] VITALS: BP 155/94
[2019-04-28] MEDS ORDERED: Aminoglycoside Consult 1 EACH MC ONE (15:29)
== END 2019-04-28 15:30 | disposition left against medical advice (07) | DRG 720 ==
LOC: EMEROOARM 22:40 → ICNU 04-27 01:47 → INTOOBSV 04-27 01:47 → ICNU 04-27 02:42 → SUATTDRO 04-27 11:39
PROVIDERS: ADMIT Internal Medicine Nephrology; ATTEND Family Medicine

== ENCOUNTER 2019-06-08 15:07 | Observation (INO) ==
[2019-06-08 15:51] LABS: Basophils % 0.8 %; Mean Corpuscular HGB Conc 31.6 g/dL (31.6-35.5); Mean Corpuscular Volume 68.5 fL (83.0-100.0)
[2019-06-08 15:53] LABS: Eosinophils # 0.2 K/mcL (0.0-0.6); Eosinophils % 3.1 %; Hematocrit 32.6 % (37.5-50.1); Hemoglobin 10.3 g/dL (12.9-16.9); Immature Granulocytes % 0.4 % (0-4); Immature Platelets 3.5 % (1.1-6.1); Lymphocytes # 2.1 K/mcL (0.6-4.6); Lymphocytes % 41.5 %; Mean Corpuscular Hemoglobin 21.6 pg (28.0-33.3); Mean Platelet Volume 10.4 fL (9.4-12.4); Monocytes # 0.5 K/mcL (0.0-1.3); Monocytes % 9.1 %; Neutrophils # 2.3 K/mcL (1.6-8.9); Platelet Count 232 K/mcL (140-400); Red Blood Count 4.76 M/mcL (4.19-5.50); Segmented Neutrophils % 45.1 %; White Blood Count 5.1 K/mcL (4.3-11.1)
[2019-06-08 16:07] LABS: Bilirubin,Urine Negative (Negative); Blood,Urine Negative (Negative); Clarity,Urine Clear (Clear); Color,Urine Yellow (Yellow); Glucose,Urine (UA) Normal (Normal); Ketones,Urine Negative (Negative); Leukocyte Esterase,Urine Negative (Negative); Nitrite,Urine Negative (Negative); Protein,Urine Negative (Neg-Trace); Urobilinogen,Urine Normal (Normal)
[2019-06-08 16:10] LABS: Platelet Estimate Normal (Normal)
[2019-06-08 16:11] LABS: Acetaminophen < 10 mcg/mL (10-20); BUN/Creatinine Ratio 9 (6-26); Blood Urea Nitrogen 17 mg/dL (6-20); Calcium 8.9 mg/dL (8.6-10.3); Carbon Dioxide 23 mEq/L (23-29); Chloride 111 mEq/L (98-107); Ethanol < 10 mg/dL (Less than 10); Glucose 149 mg/dL (70-105); Osmolality,Calculated 284 (280-300); Potassium 3.8 mEq/L (3.5-5.1); Salicylate < 2.5 mg/dL (15.0-30.0); Sodium 135 mEq/L (136-145); eGFR For African Americans 51 (> 60); eGFR For Non-African Americans 42 (> 60)
[2019-06-08 16:17] LABS: Amphetamine Screen,Urine Negative ng/mL (Cutoff=1000); Barbiturate Screen,Urine Negative ng/mL (Cutoff=200); Benzodiazepines Screen,Urine Negative ng/mL (Cutoff=200); Cannabinoid Screen,Urine Negative ng/mL (Cutoff = 50); Cocaine Screen,Urine Negative ng/mL (Cutoff= 300); Opiate Screen,Urine Negative ng/mL (Cutoff=300); Phencyclidine Screen,Urine Negative ng/mL (Cutoff=25)
--- NOTE | 2019-06-08 16:18 | Emergency Department Note ---
Disposition Clinical Impression: Elevated troponin Chest pain Qualifiers: Chest pain type: unspecified Qualified Code(s): R07.9 - Chest pain, unspecified Chronic kidney disease Qualifiers: Chronic kidney disease stage: unspecified stage Qualified Code(s): N18.9 - Chronic kidney disease, unspecified Disposition: Admitted As Inpatient Condition: Fair Referrals: NONE,PCP [Primary Care Provider] - Forms: ED Satisfaction Letter Time of Disposition: 16:54 General Adult HPI - General Chief complaint: ED Medical Clearance Stated complaint: med clearance for [place] Time Seen by Provider: 06/08/19 15:28 Source: patient Limitations: no limitations - History of Present Illness Pain Scale: 5 - Related Data Previous Rx's Medication Instructions Recorded Azithromycin [Zithromax] 500 mg PO Q24H #3 tablet 05/25/19 Labetalol [Trandate] 300 mg PO BID #180 tablet 05/25/19 NIFEdipine XL (24 HR) [Procardia 60 mg PO DAILY #30 tab.er.24 05/25/19 XL] hydrALAZINE [HydrALAZINE] 100 mg PO TID #360 tablet 05/25/19 Allergies Allergy/AdvReac Type Severity Reaction Status Date / Time Amoxicillin Allergy See Verified 05/24/19 16:19 Comments Past Medical History - Past Medical History Medical history: Reports: CHF, hypertension, renal disease Surgical history: Reports: no surgical history Psychiatric history: Reports: anxiety, depression, prior suicide attempt, previous psychiatric hospitalization - Social History Smoking Status: Current every day smoker Smokeless Tobacco Status: No Alcohol use: Reports: none Drug use: Reports: opiates, marijuana, methamphetamine, IV Drug Use Physical Exam - General Limitations: no limitations General appearance: alert, in no apparent distress Course Vital Signs Temperature 97.7 F 06/08/19 15:15 Pulse Rate 81 06/08/19 15:15 Respiratory Rate 15 06/08/19 15:15 Blood Pressure 136/75 06/08/19 15:15 O2 Sat by Pulse Oximetry 100 06/08/19 15:15 Temperature 97.7 F 06/08/19 15:40 Pulse Rate 81 06/08/19 15:40 Respiratory Rate 15 06/08/19 15:40 Blood Pressure 136/75 06/08/19 15:40 O2 Sat by Pulse Oximetry 100 06/08/19 15:40 Oxygen Delivery Oxygen Delivery Room Air Medical Decision Making - Lab Data Result diagrams: 06/08/19 15:36 06/08/19 15:36 Lab Results 06/08/19 06/08/19 06/08/19 Range/Units 15:36 15:36 15:36 WBC 5.1 (4.3-11.1) K/mcL RBC 4.76 (4.19-5.50) M/mcL Hgb 10.3 L (12.9-16.9) g/dL Hct 32.6 L (37.5-50.1) % MCV 68.5 L (83.0-100.0) fL MCH 21.6 L (28.0-33.3) pg MCHC 31.6 (31.6-35.5) g/dL RDW 18.0 H (11.5-14.5) % Plt Count 232 (140-400) K/mcL MPV 10.4 (9.4-12.4) fL Immature Gran % 0.4 (0-4) % Seg Neutrophils % 45.1 % Lymphocytes % 41.5 % Monocytes % 9.1 % Eosinophils % 3.1 % Basophils % 0.8 % Neutrophils # 2.3 (1.6-8.9) K/mcL Lymphocytes # 2.1 (0.6-4.6) K/mcL Monocytes # 0.5 (0.0-1.3) K/mcL Eosinophils # 0.2 (0.0-0.6) K/mcL Basophils # 0.0 (0.0-0.2) K/mcL Platelet Estimate Normal (Normal) Immature Plt Fraction 3.5 (1.1-6.1) % Sodium 135 L (136-145) mEq/L Potassium 3.8 (3.5-5.1) mEq/L Chloride 111 H (98-107) mEq/L Carbon Dioxide 23 (23-29) mEq/L BUN 17 (6-20) mg/dL Creatinine 1.83 H (0.70-1.30) mg/dL Est GFR ( Amer) 51 L (> 60) Est GFR (Non-Af Amer) 42 L (> 60) BUN/Creatinine Ratio 9 (6-26) Glucose 149 H (70-105) mg/dL Calculated Osmolality 284 (280-300) Calcium 8.9 (8.6-10.3) mg/dL Troponin I 0.09 H* (< 0.04) ng/mL B-Natriuretic Peptide 249 H (Less than 100) pg/mL Urine Color (Yellow) Urine Clarity (Clear) Urine pH (5.0-8.0) pH Units Ur Specific [place] (1.010-1.025) Urine Protein (Neg-Trace) mg/dL Urine Glucose (UA) (Normal) mg/dL Urine Ketones (Negative) mg/dL Urine Blood (Negative) Urine Nitrite (Negative) Urine Bilirubin (Negative) Urine Urobilinogen (Normal) mg/dL Ur Leukocyte Esterase (Negative) Salicylates < 2.5 L (15.0-30.0) mg/dL Urine Opiates Screen (Rscskg=502) ng/mL Ur Buprenorphine Scrn (Cutoff=5) ng/mL Acetaminophen < 10 L (10-20) mcg/mL Ur Barbiturates Screen (Xdqidh=248) ng/mL Ur Phencyclidine Scrn (Cutoff=25) ng/mL Ur Amphetamines Screen (Qslubh=1919) ng/mL U Benzodiazepines Scrn (Ecakqj=739) ng/mL Urine Cocaine Screen (Cutoff= 300) ng/mL U Marijuana (THC) Screen (Cutoff = 50) ng/mL Ur Drug Screen Interp Ethyl Alcohol < 10 (Less than 10) mg/dL 06/08/19 06/08/19 Range/Units 15:53 15:53 WBC (4.3-11.1) K/mcL RBC (4.19-5.50) M/mcL Hgb (12.9-16.9) g/dL Hct (37.5-50.1) % MCV (83.0-100.0) fL MCH (28.0-33.3) pg MCHC (31.6-35.5) g/dL RDW (11.5-14.5) % Plt Count (140-400) K/mcL MPV (9.4-12.4) fL Immature Gran % (0-4) % Seg Neutrophils % % Lymphocytes % % Monocytes % % Eosinophils % % Basophils % % Neutrophils # (1.6-8.9) K/mcL Lymphocytes # (0.6-4.6) K/mcL Monocytes # (0.0-1.3) K/mcL Eosinophils # (0.0-0.6) K/mcL Basophils # (0.0-0.2) K/mcL Platelet Estimate (Normal) Immature Plt Fraction (1.1-6.1) % Sodium (136-145) mEq/L Potassium (3.5-5.1) mEq/L Chloride (98-107) mEq/L Carbon Dioxide (23-29) mEq/L BUN (6-20) mg/dL Creatinine (0.70-1.30) mg/dL Est GFR ( Amer) (> 60) Est GFR (Non-Af Amer) (> 60) BUN/Creatinine Ratio (6-26) Glucose (70-105) mg/dL Calculated Osmolality (280-300) Calcium (8.6-10.3) mg/dL Troponin I (< 0.04) ng/mL B-Natriuretic Peptide (Less than 100) pg/mL Urine Color Yellow (Yellow) Urine Clarity Clear (Clear) Urine pH 6.0 (5.0-8.0) pH Units Ur Specific [place] 1.010 (1.010-1.025) Urine Protein Negative (Neg-Trace) mg/dL Urine Glucose (UA) Normal (Normal) mg/dL Urine Ketones Negative (Negative) mg/dL Urine Blood Negative (Negative) Urine Nitrite Negative (Negative) Urine Bilirubin Negative (Negative) Urine Urobilinogen Normal (Normal) mg/dL Ur Leukocyte Esterase Negative (Negative) Salicylates (15.0-30.0) mg/dL Urine Opiates Screen Negative (Vznpsx=508) ng/mL Ur Buprenorphine Scrn Negative (Cutoff=5) ng/mL Acetaminophen (10-20) mcg/mL Ur Barbiturates Screen Negative (Yugpgt=074) ng/mL Ur Phencyclidine Scrn Negative (Cutoff=25) ng/mL Ur Amphetamines Screen Negative (Xhecmq=9785) ng/mL U Benzodiazepines Scrn Negative (Btxdxs=102) ng/mL Urine Cocaine Screen Negative (Cutoff= 300) ng/mL U Marijuana (THC) Screen Negative (Cutoff = 50) ng/mL Ur Drug Screen Interp See Below Ethyl Alcohol (Less than 10) mg/dL Attestation Statement - Attestation Attestation: This is a 38-year-old male with a past medical history of medication noncompliance, hypertensive emergencies, methamphetamine and heroin abuse who p resents from [facility] for medical clearance. The patient states that he has been there for 5 days and last used 2 days ago. He has multiple complaints saying that he has heart failure and is concerned that he has fluid on his lungs. He also reports intermittent chest pain over the last week. He reports compliance with his medications. He denies any alcohol or any other drug use. He denies any suicidal or homicidal ideation. He states that he was upset there and had thought about leaving and that is when they decided to send him here for medical clearance. No other complaints. ROS: Admits to chest pain, anxiety, depression Denies shortness of breath, nausea, vomiting, lightheadedness, dizziness, homicidal ideation, suicidal ideation Physical exam: Alert, no acute distress, mentating appropriately. HEENT: Atraumatic, normocephalic. Neck: No JVD. Cardiovascular: Regular rate and rhythm. No murmurs. Respiratory: Clear to auscultation bilaterally. No wheezing or rhonchi. Abdominal: Soft, nontender, nondistended, no guarding or rigidity. Extremities: No peripheral edema. Neuro: Alert, GCS 15, no focal deficits. Psych: Normal affect and mood. Plan: Plan to check baseline labs for medical clearance. He also has a significant history for medication noncompliance and prior cardiovascular disease. We will obtain an EKG, chest x-ray and troponin as well. If these are negative the patient is appropriate for discharge back. ED Procedure Note: EKG interpretation - I agree with the resident physician's documentation and interpretation of the patient's EKG. Sinus rhythm with a rate of 73 bpm. Normal axis. Normal intervals. Normal R- wave progression. No gross ST elevations or depressions. He has T-wave inversions in leads V6. No acute ischemic findings. No significant changes from previous EKG dated 05/24/19. Imaging and labs reviewed. He does have an elevated troponin of 0.09. He also has underlying CKD. His troponins are actually unchanged from his last 2 admissions. I spoke with the on-call adult care manager, Dr. Mendez. Discussed the patient's previous 2 visits as well as workup, medication noncompliance, chronically elevated troponin. I discussed no EKG changes today and his symptoms of intermittent pain for a week. Discussed that the patient would be able to be discharged home given no change in his troponin for months. They recommend admission for workup and that the patient has left AGAINST MEDICAL ADVICE multiple times in the past before obtaining imaging such as a MARITZA given his underlying severe pulmonary hypertension and LVH. Discussed with the hospitalist who accepts for admission.
[2019-06-08 16:19] LABS: Troponin I 0.09 ng/mL (< 0.04)
[2019-06-08] MEDS ORDERED: Aspirin 325 MG TABLET PO ONE (16:38)
[2019-06-08] MEDS ORDERED: Naloxone 0.4 MG/ML INJ IVP PRN (17:13)
[2019-06-08] MEDS ORDERED: GuaiFENesin Liq 200 MG/10 ML UDC PO PRN (18:33)
--- NOTE | 2019-06-08 18:41 | Internal Med History&Physical ---
Date of Encounter: 06/08/19 Time of Encounter: 18:00 Internal Medicine - H&P: HPI Chief complaint: chest pain, coughing and shortness of breath History of present illness: Mr. Brown is a 38 year old male with pmh of polysubstance abuse, poor medical compliance, hypertension, severe pulmonary hypertension, diastolic CHF presenting with complaints of left sided chest pain and shortness of breath that has been going on for about 1 month and has been getting acutely worse. Patient is in a drug abuse treatment center and was sent here from there to be assessed for the chest pain. He says the pain is left sided sharp and associated with shortness of breath. He also complains of coughing with productive phlegm and wheezing of about 3 days duration. He has been smoking for 26 years. In the ER, he was given aspirin and cardiology consulted. He is being admitted for further management Past Med Surg Social Fam HX - Past Medical History Medical history: CHF, hypertension, renal disease Additional medical history: stage III renal failure, ENDOCARDITIS ? Psychiatric history: anxiety, depression, prior suicide attempt, previous psychiatric hospitalization - Past Surgical History Surgical History: no surgical history - Social History Smoking Status: Current every day smoker Smokeless Tobacco Status: No Alcohol use: none Drug use: opiates, marijuana, methamphetamine, IV Drug Use - Family History Father Adopted: No Living Status: Hx Family Cardiac Disorders: No Hx Family Respiratory Disorders: Yes Hx Family Cancer: Yes Hx Family GI Disorders: Yes Hx Family Endocrine Disorder: Yes Hx Family Neuromuscular Disorders: No Hx Family Neurologic Disorders: No Hx Family HEENT Disorders: No Hx Family Autoimmune Disorders: No Mother Living Status: Still Living Hx Family GI Disorders: Yes Internal Medicine - H&P: Meds Labetalol [Trandate] 300 mg PO BID #180 tablet 05/25/19 [Rx] NIFEdipine XL (24 HR) [Procardia XL] 60 mg PO DAILY #30 tab.er.24 05/25/19 [Rx] hydrALAZINE [HydrALAZINE] 100 mg PO TID #360 tablet 05/25/19 [Rx] Allergy/AdvReac Type Severity Reaction Status Date / Time Amoxicillin Allergy See Verified 05/24/19 16:19 Comments All Systems PM: A 10-system review of systems was performed and is negative for pertinent findings except as documented above in the HPI. - Constitutional Constitutional: no chills, no fever(s), no night sweats - EENT Eyes: no change in vision, no discharge, no pain, no photophobia Ears: no ear discharge, no ear pain, no tinnitus Nose, mouth and throat: no dysphagia, no nasal discharge, no neck pain, no sore throat - Cardiovascular Cardiovascular ROS IM: chest pain, dyspnea, no diaphoresis, no lightheadedness, no palpitations, no syncope - Respiratory Respiratory: cough, dyspnea, no wheezing, no excessive phlegm production - Gastrointestinal Gastrointestinal: no abdominal pain, no diarrhea, no hematemesis, no hematoche chetan, no melena, no nausea, no vomiting - Musculoskeletal Musculoskeletal ROS IM: no numbness, no tingling - Integumentary Integumentary IM: no rash, no unusual bruising - Neurological Neurological ROS: no confusion, no convulsions, no focal weakness, no numbness, no tingling, no tremor(s) - Hematologic/Lymphatic Hematologic/Lymphatic: no easy bruising - Constitutional Vitals: Temp Pulse Resp BP Pulse Ox 97.7 F 81 15 136/75 100 06/08/19 15:40 06/08/19 15:40 06/08/19 15:40 06/08/19 15:40 06/08/19 15:40 Exam: NAD Scattered wheezes - Head Head exam: Present: atraumatic, normocephalic - Eye Eye exam: Present: PERRL, conjuntiva pink, sclera anicteric Pupils: Present: PERRL - Neck Neck exam general surgery: Present: supple, trachea midline. Absent: lymphadenopathy - Respiratory Respiratory exam: Present: CTAB. Absent: accessory muscle use, rales, rhonchi, wheezes - Cardiovascular Cardiovascular exam: Present: RRR, +S1, +S2. Absent: diastolic murmur, gallop, rubs, systolic murmur - GI/Abdominal GI/Abdominal exam: Present: normal bowel sounds, soft, no peritoneal signs. Absent: distended, tenderness - Extremities Exam Extremities exam: Present: warm, radial pulses palpable and symmetrical. Absent: calf tenderness, cyanotic, pedal edema - Neurological Exam Neurological exam: Present: CN II-XII intact, oriented X3, no focal deficits. Absent: pronater drift, facial droop, speech deficit - Skin Skin exam: Present: dry, intact Internal Med - H&P Results - Labs CBC & Chem 7: 06/08/19 15:36 06/08/19 15:36 Labs: Short CBC 06/08/19 Range/Units 15:36 WBC 5.1 (4.3-11.1) K/mcL Hgb 10.3 L (12.9-16.9) g/dL Hct 32.6 L (37.5-50.1) % Plt Count 232 (140-400) K/mcL Neutrophils # 2.3 (1.6-8.9) K/mcL BMP 06/08/19 15:36 Sodium 135 L Potassium 3.8 Chloride 111 H Carbon Dioxide 23 BUN 17 Creatinine 1.83 H Glucose 149 H Calcium 8.9 Cardiac Enzymes 06/08/19 Range/Units 15:36 Troponin I 0.09 H* (< 0.04) ng/mL Urine 06/08/19 Range/Units 15:53 Urine Color Yellow (Yellow) Urine Clarity Clear (Clear) Urine pH 6.0 (5.0-8.0) pH Units Ur Specific [place] 1.010 (1.010-1.025) Urine Protein Negative (Neg-Trace) mg/dL Urine Glucose (UA) Normal (Normal) mg/dL - Impressions ITS Impressions Chest X-Ray 06/08/19 16:18 IMPRESSION: Mild cardiomegaly without acute cardiopulmonary process. D/ / 06/08/2019 16:22:16 Scotty Chun MD [facility] Interpreting Provider: Scotty Chun MD - Assessment and Plan (1) Chest pain Current Visit: Yes Status: Acute Assessment and plan: Pt comes in with chest pain of 1 month duration acutely worsening in the last 3 days Mild troponin elevation. Trend troponins, start on aspirin, obtain limited echo to assess wall motion Cardiology consulted from ER and appreciate recs. Denies using any drugs recently, Utox is negative Qualifiers: Chest pain type: unspecified Qualified Code(s): R07.9 - Chest pain, unspe cified (2) CHF (congestive heart failure) Current Visit: Yes Status: Acute Assessment and plan: Euvolemic. History of heart failure with preserved EF Continue home meds Qualifiers: Heart failure type: diastolic Heart failure chronicity: unspecified Qualified Code(s): I50.30 - Unspecified diastolic (congestive) heart failure (3) COPD exacerbation Current Visit: Yes Status: Acute Assessment and plan: Nebs, steroids and antibiotics (4) CKD (chronic kidney disease), stage III Current Visit: Yes Status: Acute Assessment and plan: Stable. (5) DVT prophylaxis Current Visit: Yes Status: Acute Assessment and plan: Heparin sc - Time Spent With Patient Total time spent is greater than 50% in coordination of care (as documented) at patient's floor/unit and/or counseling patient:
[2019-06-08] MEDS: Ipratropium/Albuterol Neb 3 ML IH SCH ×2 (19:36→23:23)
[2019-06-08] MEDS: Azithromycin 250 MG TABLET PO SCH (19:50)
[2019-06-08] MEDS: predniSONE 20 MG TABLET PO SCH (19:50)
[2019-06-08] MEDS: hydrALAZINE 25 MG TABLET PO SCH (19:51)
[2019-06-08] MEDS: Acetaminophen IV 1,000 MG/100 ML INFUS..BTL IVPB SCH (19:55)
[2019-06-08] MEDS ORDERED: Melatonin 3 MG TABLET PO PRN (22:16)
[2019-06-09 02:53] LABS: Basophils % 0.3 %; Eosinophils % 0.3 %; Mean Corpuscular Volume 68.5 fL (83.0-100.0)
[2019-06-09 02:55] LABS: Hematocrit 35.2 % (37.5-50.1); Hemoglobin 11.2 g/dL (12.9-16.9); Immature Granulocytes % 0.6 % (0-4); Immature Platelets 4.6 % (1.1-6.1); Lymphocytes % 16.8 %; Mean Corpuscular HGB Conc 31.8 g/dL (31.6-35.5); Mean Corpuscular Hemoglobin 21.8 pg (28.0-33.3); Monocytes # 0.1 K/mcL (0.0-1.3); Monocytes % 1.6 %; Platelet Count 238 K/mcL (140-400); Red Blood Count 5.14 M/mcL (4.19-5.50); Red Cell Distribution Width 18.1 % (11.5-14.5); Segmented Neutrophils % 80.4 %; White Blood Count 6.2 K/mcL (4.3-11.1)
[2019-06-09] MEDS: Acetaminophen IV 1,000 MG/100 ML INFUS..BTL IVPB SCH ×2 (03:01→08:08)
[2019-06-09] MEDS: Ipratropium/Albuterol Neb 3 ML IH SCH ×4 (03:58→15:49)
[2019-06-09 04:21] LABS: Hypochromasia Present (Not Present); Target Cells 1+ (Not Present)
[2019-06-09 04:22] LABS: Anisocytosis 1+ (Not Present); Microcytosis Present (Not Present); Platelet Estimate Normal (Normal); Poikilocytosis 1+ (Not Present)
[2019-06-09 04:24] LABS: Magnesium 1.9 mg/dL (1.6-2.6); Phosphorous 2.6 mg/dL (2.7-4.5)
[2019-06-09] MEDS: predniSONE 20 MG TABLET PO SCH ×2 (08:05→16:10)
[2019-06-09] MEDS: hydrALAZINE 25 MG TABLET PO SCH ×2 (08:05→14:05)
[2019-06-09] MEDS: Azithromycin 250 MG TABLET PO SCH (08:06)
[2019-06-09] MEDS ORDERED: Aspirin 81 MG TAB.CHEW PO SCH (09:00)
[2019-06-09] MEDS ORDERED: NIFEdipine XL (24 HR) 60 MG TAB.ER.24 PO SCH (09:00)
--- NOTE | 2019-06-09 10:20 | Cardiology Consult Note ---
<Godfrey Barreto - Last Filed: 06/09/19 11:18> Date of Encounter: 06/09/19 Time of Encounter: 09:00 Assessment and Plan (1) Chest pain Current Visit: Yes Status: Acute 38M with history of IVDU, poorly controlled HTN, medication noncompliance, severe pulmonary HTN and HFpEF presents with left sided chest pain for past 2 weeks, described as sharp and constant, non-exertional, non-reproducible. Troponins elevated, 0.10-->0.09-->0.09; this does appear chronically elevated on review of records, patient does have CKD3. EKG shows LVH and diffuse T-wave inversions but these are present on previous EKGs as well. Patient has multiple admissions with same presentation in last 2 months. Echo 04/27/19 revealed EF 55- 60% with severe LVH and LA dilation, severe pulm HTN and LV diastolic dysfunction. UDS negative for drugs of abuse. Patient reports compliance with his antihypertensives, BP actually well controlled on admission, but has history of hypertensive emergencies. Plan: -Suspect chronically elevated troponin 2/2 demand ischemia/hx of amphetamine abuse in setting of CKD 3 but cannot definitively r/o CAD -Will proceed with diagnostic C given multiple CP admissions in the past -Nephrology consulted d/t risk for TERRANCE, calculated risk roughly 26% -NPO midnight -Continue ASA, Labetalol, Nifedipine, Hydralazine Qualifiers: Chest pain type: unspecified Qualified Code(s): R07.9 - Chest pain, unspecified (2) CHF (congestive heart failure) Current Visit: Yes Status: Acute Known hx of HFpEF Last Echo 04/27/19: LVEF 55-60%, Severe LVH Moderate LV Diastolic Dysfunction Normal RV structure/function Severely dilated LA Mild-Mod Tricuspid Regurg Mild-Mod Mitral Regurg Severe Pulmonary Hypertension Presentes with elevated BNP, 249 CXR shows Cardiomegaly but no evidence Pulm Edema Physical Exam negative for signs of fluid overload, not in acute exacerbation Continue to monitor for signs of hypervolemia Qualifiers: Heart failure type: diastolic Heart failure chronicity: unspecified Qualified Code(s): I50.30 - Unspecified diastolic (congestive) heart failure (3) CKD (chronic kidney disease), stage III Current Visit: Yes Status: Acute Currently at baseline GFR/SCr TERRANCE risk 26% for diagnostic LHC Nephrology consulted Will likely need premedicated (4) COPD exacerbation Current Visit: Yes Status: Acute Patient does appear to be in acute exacerbation Complains of wheezing, worsening cough, increasing sputum production x3 days Diffuse wheezing on exam today Agree with Azithromycin, mucolytics, steroid, duonebs (5) Elevated troponin Current Visit: Yes Status: Acute Chronically elevated 0.10-->0.09-->0.09 Plan as above proceed with [facility] Discussion w patient/family: The assessment and plan as outlined above was discussed with the patient and/or family members who expressed understanding and agreement. All questions were answered. Thank you for involving us in the care of your patient. Please call with any questions. History of Present Illness Consult date: 06/09/19 Consult reason: elevated troponins Chief complaint: chest pain History of present illness: Mr. Brown is a 38 year old male with a past medical history of CKD stage III, hypertension, diastolic CHF, severe pulmonary hypertension, history of IV drug abuse and previous endocarditis, presents to the hospital for his fourth evaluation of chest pain in the last 2 months. Patient was discharged from the hospital on May 23 following a hypertensive emergency with elevated tr oponin and decompensated heart failure in setting of polysubstance abuse including but not limited to methamphetamine. Patient has been undergoing treatment at a drug Rehabilitation facility and reports he has not used drugs for roughly 2 weeks. Urine drug screen confirms this. Patient states that he had acute onset left sided sharp chest pain that began roughly 2 weeks ago around the time he was discharged. Patient denies any alleviating or aggravating factors. States pain is constant 7/10 since onset. The pain is not reproducible there is no chest wall tenderness. Patient has had history of medication noncompliance precipitating his previous hypertensive urgency admissions however he reports he has been compliant and his antihypertensive medication since last discharge. Patient additionally complains of a cough with wheezing and increasing sputum production. In the ED, blood pressure 136/75, heart rate 81, respiratory rate 15, oxygen saturation 100% on room air. Physical exam reveals diffuse wheezing on auscultation, no evidence of crackles, heart is regular rate and rhythm with a grade 3 diastolic murmur appreciated heard best at the left sternal border. Laboratory workup significant for troponin elevation 0.10-->0.09-->0.09, which is chronically elevated based on prior admissions, BNP is elevated at 249, GFR is 42 which is essentially baseline for this patient. UA was bland. UDS was negative for drugs of abuse. EKG showed diffuse t-wave inversions which is un changed from previous EKGs. Recent Echo 04/27/19 revealed severe pulm htn with LVDD, LVH, and left atrial dilation with thickened mitral valve leaflet 2/2 hx of endocarditis. Past Med Surg Social Fam HX - Past Medical History Medical history: CHF, hypertension, renal disease Additional medical history: stage III renal failure, ENDOCARDITIS ? Psychiatric history: anxiety, depression, prior suicide attempt, previous psychiatric hospitalization - Past Surgical History Surgical History: no surgical history - Social History Smoking Status: Current every day smoker Packs per day: 1 Smokeless Tobacco Status: No Alcohol use: none Drug use: opiates, methamphetamine, IV Drug Use - Family History Father Adopted: No Living Status: Hx Family Cardiac Disorders: No Hx Family Respiratory Disorders: Yes Hx Family Cancer: Yes Hx Family GI Disorders: Yes Hx Family Endocrine Disorder: Yes Hx Family Neuromuscular Disorders: No Hx Family Neurologic Disorders: No Hx Family HEENT Disorders: No Hx Family Autoimmune Disorders: No Mother Living Status: Still Living Hx Family GI Disorders: Yes Medications and Allergies Labetalol [Trandate] 300 mg PO BID #180 tablet 05/25/19 [Rx] NIFEdipine XL (24 HR) [Procardia XL] 60 mg PO DAILY #30 tab.er.24 05/25/19 [Rx] hydrALAZINE [HydrALAZINE] 100 mg PO TID #360 tablet 05/25/19 [Rx] Melatonin 10 mg PO HS 06/08/19 [History] Cyclobenzaprine [Flexeril] 10 mg PO BID PRN 06/09/19 [History] Dicyclomine Hcl [Bentyl] 20 mg PO TID PRN 06/09/19 [History] Ondansetron HCl [Zofran] 4 mg PO Q6H PRN 06/09/19 [History] cloNIDine HCl [Clonidine HCl] 0.1 mg PO BID PRN 06/09/19 [History] hydrOXYzine pamoate [Vistaril] 25 mg PO TID PRN 06/09/19 [History] Allergy/AdvReac Type Severity Reaction Status Date / Time Amoxicillin Allergy See Verified 05/24/19 16:19 Comments All Systems Review: The remainder of the systems were reviewed and are negative Physical Examination Vital Signs, Last 4 Hours Temp Pulse Resp BP Pulse Ox 06/09/19 07:59 16 100 06/09/19 07:27 97.8 F 74 16 154/87 100 Other: Gen: alert and oriented, NAD, vitals stable Head: atraumatic normocephalic Eyes: anicteric sclera, EOMI ENT: mucous membranes moist, oropharynx clear Neck: trachea midline, no JVD, no carotid bruit CV: RRR, grade 3 diastolic murmur heard best Left sternal border Resp: Diffuse wheezing on exam, no rales or rhonchi, nonlabored breathing Abd: soft, nontender, nondistended, no organomegaly Ext: no peripheral edema on exam, no rash, no clubbing Results 06/09/19 02:03 06/09/19 02:03 Lab Results 06/08/19 06/08/19 06/08/19 15:36 15:36 15:36 WBC 5.1 Hgb 10.3 L Hct 32.6 L Plt Count 232 Sodium 135 L Potassium 3.8 Chloride 111 H Carbon Dioxide 23 BUN 17 Creatinine 1.83 H Glucose 149 H Calcium 8.9 Magnesium Troponin I 0.09 H* B-Natriuretic Peptide 249 H 06/08/19 06/09/19 06/09/19 19:48 02:03 02:03 WBC 6.2 Hgb 11.2 L Hct 35.2 L Plt Count 238 Sodium Potassium Chloride Carbon Dioxide BUN Creatinine Glucose Calcium Magnesium Troponin I 0.10 H* 0.09 H* B-Natriuretic Peptide 06/09/19 06/09/19 02:03 07:56 WBC Hgb Hct Plt Count Sodium 137 Potassium 5.0 D Chloride 109 H Carbon Dioxide 22 L BUN 23 H Creatinine 1.94 H Glucose 155 H Calcium 9.0 Magnesium 1.9 Troponin I 0.09 H* B-Natriuretic Peptide Consult Discharge Plan - Plan Referrals: Yanira Wagner [Advanced Practice Nurse] - 06/15/19 10:30 am ([facility]) Cardiac Rehab - Cardiac Rehab Cardiac Rehab: Phase I consult completed. Patient was educated on why Cardiac Rehabilitation is beneficial to his/her health. Participating in a cardiac rehabilitation can improve the following: strengthen your heart, improve ejection fraction, weight reduction, decrease cholesterol levels, lower blood pressure, lower blood sugar, improve stamina, and enhance self-image. If he/she has any questions, they were instructed to call [facility] at [phone]. <Awilda Zimmerman - Last Filed: 06/09/19 14:38> Date of Encounter: 06/09/19 - Attending Attestation I examined this patient and my medical decision-making was reviewed with the Resident Physician. I agree with the documented findings, disposition and treatment plan as described. Mr. Brown presents for ongoing left sided chest discomfort. On exam, he describes mild tenderness with focal discomfort upon palpation. Troponins are chronically elevated and therefore not indicative of ACS. ECG demonstrates no new changes when compared to prior. Etiology of chest discomfort not entirely clear, may be musculoskeletal. Discussed options with patient including conservative observation vs. LHC. R/B/A of LHC were discussed. Recommend Nephrology involvement to help determine risk for TERRANCE. Patient contemplative at this time. Assessment and Plan Discussion w patient/family: The assessment and plan as outlined above was discussed with the patient and/or family members who expressed understanding and agreement. All questions were answered. Thank you for involving us in the care of your patient. Please call with any questions. History of Present Illness History of present illness: Mr. Brown is a 38 year old male All Systems Review: The remainder of the systems were reviewed and are negative Physical Examination Vital Signs, Last 4 Hours Temp Pulse Resp BP Pulse Ox 06/09/19 11:21 17 100 06/09/19 11:13 97.9 F 65 16 142/75 100 Results 06/09/19 02:03 06/09/19 02:03 Lab Results 06/08/19 06/08/19 06/08/19 15:36 15:36 15:36 WBC 5.1 Hgb 10.3 L Hct 32.6 L Plt Count 232 Sodium 135 L Potassium 3.8 Chloride 111 H Carbon Dioxide 23 BUN 17 Creatinine 1.83 H Glucose 149 H Calcium 8.9 Magnesium Troponin I 0.09 H* B-Natriuretic Peptide 249 H 06/08/19 06/09/19 06/09/19 19:48 02:03 02:03 WBC 6.2 Hgb 11.2 L Hct 35.2 L Plt Count 238 Sodium Potassium Chloride Carbon Dioxide BUN Creatinine Glucose Calcium Magnesium Troponin I 0.10 H* 0.09 H* B-Natriuretic Peptide 06/09/19 06/09/19 02:03 07:56 WBC Hgb Hct Plt Count Sodium 137 Potassium 5.0 D Chloride 109 H Carbon Dioxide 22 L BUN 23 H Creatinine 1.94 H Glucose 155 H Calcium 9.0 Magnesium 1.9 Troponin I 0.09 H* B-Natriuretic Peptide Cardiac Rehab - Cardiac Rehab Cardiac Rehab: Phase I consult completed. Patient was educated on why Cardiac Rehabilitation is beneficial to his/her health. Participating in a cardiac rehabilitation can improve the following: strengthen your heart, improve ejection fraction, weight reduction, decrease cholesterol levels, lower blood pressure, lower blood sugar, improve stamina, and enhance self-image. If he/she has any questions, they were instructed to call [facility] at [phone].
[2019-06-09 11:15] VITALS: BP 142/75
--- NOTE | 2019-06-09 11:26 | Electrocardiograph Report ---
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
--- NOTE | 2019-06-09 13:31 | Internal Med Progress Note ---
<YuecarsonAlexis irizarry - Last Filed: 06/09/19 13:54> Hospitalist Progress Note - Encounter Date of Encounter: 06/09/19 Time of Encounter: 09:10 - Subjective Interval History: When seen today patient, patient says that he still continues to experience constant chest pain. He states that he had similar symptoms 2 weeks ago around the time that he was discharged from the hospital. The chest pain subsided for 2 weeks but apparently came back a few days ago. He describes the chest pain as midsternal with no radiation. He rates the pain as a 7 out of 10 in severity. He says the pain does not become worse with deep breaths. He denies any fever. He does admit to a dry cough. Denies any shortness of breath. Denies any wheezing. Denies any abdominal pain, nausea, or vomiting. He does admit to some lower back pain on the right side that is mild to moderate in severity. - Exam Vitals: Temp Pulse Resp BP Pulse Ox 97.9 F 65 17 142/75 100 06/09/19 11:13 06/09/19 11:13 06/09/19 11:21 06/09/19 11:13 06/09/19 11:21 Exam: GENERAL APPEARANCE: Well developed, well nourished, alert and cooperative, and appears to be in no acute distress. HEAD: normocephalic. EYES: vision is grossly intact. EARS: hearing grossly intact. NOSE: No nasal discharge. THROAT: Oral cavity and pharynx normal. No inflammation, swelling, exudate, or lesions. Teeth and gingiva in good general condition. NECK: Neck supple, non-tender without lymphadenopathy, masses or thyromegaly. CARDIAC: Normal S1 and S2. No S3, S4 or murmurs. Rhythm is regular. There is no peripheral edema, cyanosis or pallor. Extremities are warm and well perfused. Capillary refill is less than 2 seconds. No carotid bruits. LUNGS: Mild rhales bilaterally. No wheezing noted. ABDOMEN: Positive bowel sounds. Soft, nondistended, nontender. No guarding or rebound. No masses. MUSKULOSKELETAL: Adequately aligned spine. ROM intact spine and extremities. No joint erythema or tenderness. Normal muscular development. BACK: Examination of the spine reveals normal gait and posture, no spinal deformity, symmetry of spinal muscles, without decreased range of motion or muscular spasm. Mild tendenress in the R lower lumbar region. EXTREMITIES: No significant deformity or joint abnormality. No edema. Peripheral pulses intact. No varicosities. LOWER EXTREMITY: Examination of both feet reveals all toes to be normal in size and symmetry, normal range of motion, normal sensation with distal capillary filling of less than 2 seconds without tenderness, swelling, discoloration, nodules, weakness or deformity. SKIN: Skin normal color, texture and turgor with no lesions or eruptions. PSYCHIATRIC: The mental examination revealed the patient was oriented to person, place, and time. The patient was able to demonstrate good judgement and reason, without hallucinations, abnormal affect or abnormal behaviors during the examination. - Assessment and Plan (1) Chest pain Current Visit: Yes Status: Acute Assessment and Plan: Troponins elevated, 0.10-->0.09-->0.09; this does appear chronically elevated on review of records within context of CKD stage III. EKG shows LVH and diffuse T- wave inversions but these are present on previous EKGs as well. Patient has multiple admissions with same presentation in last 2 months. Echo 04/27/19 revealed EF 55-60% with severe LVH and LA dilation, severe pulm HTN and LV diastolic dysfunction. Patient does have history of polysubstance abuse, however toxicology report was negative. Patient reports compliance with his antihypertensives, however upon reviewing previous record from nephrology, it was stated that he has a history of poor compliance and has history of hypertensive emergencies. - Elevated troponins are likely due to history of CKD III and demand ischemia however given the multiple admissions for similar complaints in the past cardiology recommends with proceeded with a diagnostic [facility] tomorrow. - NPO midnight. - Continue ASA, Labetalol, Nifedipine, Hydralazine. (2) CHF (congestive heart failure) Current Visit: Yes Status: Acute Assessment and Plan: Last Echo 04/27/19: LVEF 55-60%, Severe LVH. Moderate LV Diastolic Dysfunction. Elevated BNP of 249 on admission. CXR shows cardiomegaly but no evidence pulmonary edema. Patient is euvolemic on exam. - Continue with beta blockers. - Cardiac diet. (3) CKD (chronic kidney disease), stage III Current Visit: Yes Status: Acute Assessment and Plan: Creatinine of 1.94, currently at baseline. Patient denies being on NSAIDs of antibiotics at home. 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 Poor compliance with medications. Recurrent history of emergent hypertension. - Consult to nephrology for risk of TERRANCE. - Avoid nephrotoxic meds. (4) COPD exacerbation Current Visit: Yes Status: Acute Assessment and Plan: Continues to demonstrate diffuse rhales and crackles on exam. VS stable. Afebrile. - Continue with duonebs, azithromycin, and albuterol PRN. DVT Prophylaxis: Heparin SQ - Time Spent with Patient Total time spent is greater than 50% in coordination of care (as documented) at patient's floor/unit and/or counseling patient: Internal Medicine: Result - Labs CBC & Chem 7: 06/09/19 02:03 06/09/19 02:03 Labs: Short CBC 06/08/19 06/09/19 Range/Units 15:36 02:03 WBC 5.1 6.2 (4.3-11.1) K/mcL Hgb 10.3 L 11.2 L (12.9-16.9) g/dL Hct 32.6 L 35.2 L (37.5-50.1) % Plt Count 232 238 (140-400) K/mcL Neutrophils # 2.3 5.0 (1.6-8.9) K/mcL BMP 06/08/19 06/09/19 15:36 02:03 Sodium 135 L 137 Potassium 3.8 5.0 D Chloride 111 H 109 H Carbon Dioxide 23 22 L BUN 17 23 H Creatinine 1.83 H 1.94 H Glucose 149 H 155 H Calcium 8.9 9.0 Cardiac Enzymes 06/08/19 06/08/19 06/09/19 Range/Units 15:36 19:48 02:03 Troponin I 0.09 H* 0.10 H* 0.09 H* (< 0.04) ng/mL 06/09/19 Range/Units 07:56 Troponin I 0.09 H* (< 0.04) ng/mL Urine 06/08/19 Range/Units 15:53 Urine Color Yellow (Yellow) Urine Clarity Clear (Clear) Urine pH 6.0 (5.0-8.0) pH Units Ur Specific Patterson 1.010 (1.010-1.025) Urine Protein Negative (Neg-Trace) mg/dL Urine Glucose (UA) Normal (Normal) mg/dL - Impressions Impressions Chest X-Ray 06/08/19 16:18 IMPRESSION: Mild cardiomegaly without acute cardiopulmonary process. D/ / 06/08/2019 16:22:16 Scotty Chun MD / earnold Interpreting Provider: Scotty Chun MD Consult Discharge Plan - Plan Referrals: Yanira Wagner [Advanced Practice Nurse] - 06/15/19 10:30 am ([facility]) <Ronaldo Joe - Last Filed: 06/09/19 15:07> Hospitalist Progress Note - Encounter Date of Encounter: 06/09/19 - Exam Vitals: Temp Pulse Resp BP Pulse Ox 97.9 F 65 17 142/75 100 06/09/19 11:13 06/09/19 11:13 06/09/19 11:21 06/09/19 11:13 06/09/19 11:21 - Assessment and Plan (1) Chest pain Current Visit: Yes Status: Acute (2) CHF (congestive heart failure) Current Visit: Yes Status: Acute (3) COPD exacerbation Current Visit: Yes Status: Acute (4) CKD (chronic kidney disease), stage III Current Visit: Yes Status: Acute (5) DVT prophylaxis Current Visit: Yes Status: Acute - Time Spent with Patient Total time spent is greater than 50% in coordination of care (as documented) at patient's floor/unit and/or counseling patient: Internal Medicine: Result - Labs CBC & Chem 7: 06/09/19 02:03 06/09/19 02:03 Labs: Short CBC 06/08/19 06/09/19 Range/Units 15:36 02:03 WBC 5.1 6.2 (4.3-11.1) K/mcL Hgb 10.3 L 11.2 L (12.9-16.9) g/dL Hct 32.6 L 35.2 L (37.5-50.1) % Plt Count 232 238 (140-400) K/mcL Neutrophils # 2.3 5.0 (1.6-8.9) K/mcL BMP 06/08/19 06/09/19 15:36 02:03 Sodium 135 L 137 Potassium 3.8 5.0 D Chloride 111 H 109 H Carbon Dioxide 23 22 L BUN 17 23 H Creatinine 1.83 H 1.94 H Glucose 149 H 155 H Calcium 8.9 9.0 Cardiac Enzymes 06/08/19 06/08/19 06/09/19 Range/Units 15:36 19:48 02:03 Troponin I 0.09 H* 0.10 H* 0.09 H* (< 0.04) ng/mL 06/09/19 Range/Units 07:56 Troponin I 0.09 H* (< 0.04) ng/mL Urine 06/08/19 Range/Units 15:53 Urine Color Yellow (Yellow) Urine Clarity Clear (Clear) Urine pH 6.0 (5.0-8.0) pH Units Ur Specific Patterson 1.010 (1.010-1.025) Urine Protein Negative (Neg-Trace) mg/dL Urine Glucose (UA) Normal (Normal) mg/dL - Impressions Impressions Chest X-Ray 06/08/19 16:18 IMPRESSION: Mild cardiomegaly without acute cardiopulmonary process. D/ / 06/08/2019 16:22:16 Scotty Chun MD / earnold Interpreting Provider: Scotty Chun MD - Attending Attestation I examined this patient and my medical decision-making was reviewed with the Resident Physician Dr. Landa. I agree with the documented findings, disposition and treatment plan as described except to the extent set forth below. Mr. Brown is a 38 year old male with PMH of IVDU, Uncontrolled HTN, Pulm HTN, CKD-3 and HFpEF, who presented to ER with left sided chest pain for 2 weeks. Described the pain as constant, non-exertional, and "sharp". Pt is in a drug rehabilitation facility and has been there for 2 weeks. He reports he has not used in 2 weeks and UDS is negative. He was admitted in the hospital and placed him on panel monitor. His troponin slightly elevated, adynamic and flat, due to demand ischemia. However since pt is keep complaining of recurrent CP and had multiple hospitalizations with chest pain , consulted cardiology for further eval. Card is planning on doing LHC In AM. Consulted Nephro for renal assistance due to his CKD-3. <Alexis Landa - Last Filed: 06/09/19 13:54> (1) Chest pain Qualifiers: Chest pain type: unspecified Qualified Code(s): R07.9 - Chest pain, unspecified (2) CHF (congestive heart failure) Qualifiers: Heart failure type: diastolic Heart failure chronicity: unspecified Qualified Code(s): I50.30 - Unspecified diastolic (congestive) heart failure <Ronaldo Joe - Last Filed: 06/09/19 15:07> (1) Chest pain Qualifiers: Chest pain type: unspecified Qualified Code(s): R07.9 - Chest pain, unspecified (2) CHF (congestive heart failure) Qualifiers: Heart failure type: diastolic Heart failure chronicity: unspecified Qualified Code(s): I50.30 - Unspecified diastolic (congestive) heart failure
--- NOTE | 2019-06-09 14:21 | Nephrology Consult Note ---
Date of Encounter: 06/09/19 Time of Encounter: 14:14 Assessment and Plan (1) CKD (chronic kidney disease), stage III Current Visit: Yes Status: Acute Baseline GFR appears to be CKD 3, he is a patient of Heidi Mccloud CNP, however he has not seen her for a year. GFR today is 48, near baseline. NS ordered x 2 liters. If GFR stable, may proceed with LHC tomorrow. Risks and benefits discussed regarding TERRANCE, and how best to prevent it. Pt understands there is risk involved. Best practice to reduce TERRANCE is to hydrate before the LHC, continue IVF until LHC is completed. Force fluids after procedure. BMP daily until discharge. F/U with Heidi Mccloud CNP 4 weeks after hospitalization. Avoid nephrotoxins and renal dose all medications. Daily weights. Strict I/Os. CKD workup pending. (2) CHF (congestive heart failure) Current Visit: Yes Status: Acute Per cardio. Qualifiers: Heart failure type: diastolic Heart failure chronicity: unspecified Qualified Code(s): I50.30 - Unspecified diastolic (congestive) heart failure (3) Chest pain Current Visit: Yes Status: Acute Per cardio. Qualifiers: Chest pain type: unspecified Qualified Code(s): R07.9 - Chest pain, unspe cified (4) Elevated troponin Current Visit: Yes Status: Acute Per cardio. History of Present Illness - Reason for Consult Consult date: 06/09/19 Acute Kidney Injury Requesting physician: Ronaldo Joe - Chief Complaint chest pain - History of Present Illness Mr. Brown is a 38 year old male with PMH: IVDU, Uncontrolled HTN, Pulm HTN, and HFpEF, who presented with left sided chest pain for 2 weeks. Described the pain as constant, non-exertional, and "sharp". Pt is in a drug rehabilitation facility and has been there for 2 weeks. He reports he has not used in 2 weeks and UDS is negative. Admits to chest pain right now 2/10, constant and to the left. Denies nausea, vomiting, diarrhea. Denies shortness of breath. Denies hematuria, dysuria, or urgency. [facility] were consulted to manage CKD. He is a patient of Heidi Mccloud CNP, but he has not seen her in over a year. CKD workup ordered and pending. Cardio would like to proceed with C tomorrow, would like recommendations before to minimize TERRANCE. He is homeless for now. He plans to return back to rehab facility. Denies etoh, tobacco use, or current drug use. He does have a FH of father with ESRD on HD, he about a week ago while on HD (per patient). Past Med Surg Social Fam HX - Past Medical History Medical history: CHF, hypertension, renal disease Additional medical history: stage III renal failure, ENDOCARDITIS ? Psychiatric history: anxiety, depression, prior suicide attempt, previous psychiatric hospitalization - Past Surgical History Surgical History: no surgical history - Social History Smoking Status: Current every day smoker Packs per day: 1 Smokeless Tobacco Status: No Alcohol use: none Drug use: opiates, methamphetamine, IV Drug Use - Family History Father Adopted: No Living Status: Hx Family Cardiac Disorders: No Hx Family Respiratory Disorders: Yes Hx Family Cancer: Yes Hx Family GI Disorders: Yes Hx Family Endocrine Disorder: Yes Hx Family Neuromuscular Disorders: No Hx Family Neurologic Disorders: No Hx Family HEENT Disorders: No Hx Family Autoimmune Disorders: No Mother Living Status: Still Living Hx Family GI Disorders: Yes Medications and Allergies Labetalol [Trandate] 300 mg PO BID #180 tablet 05/25/19 [Rx] NIFEdipine XL (24 HR) [Procardia XL] 60 mg PO DAILY #30 tab.er.24 05/25/19 [Rx] hydrALAZINE [HydrALAZINE] 100 mg PO TID #360 tablet 05/25/19 [Rx] Melatonin 10 mg PO HS 06/08/19 [History] Allergy/AdvReac Type Severity Reaction Status Date / Time Amoxicillin Allergy See Verified 05/24/19 16:19 Comments Review of Systems All Systems review (narrative): The remainder of the systems are negative. Constitutional: no chills, no fatigue, no fever(s) Cardiovascular: chest pain, chest pain at rest, no dyspnea, no dyspnea on exertion, no edema Respiratory: no cough Gastrointestinal: no change in bowel habits, no diarrhea, no nausea, no vomiting Genitourinary Male: no hematuria, no urinary frequency, no urinary hesitancy, no urinary urgency Exam - Vital Signs Vital signs: Initial Vital Signs Temp Pulse Resp BP Pulse Ox 97.7 F 81 15 136/75 100 06/08/19 15:15 06/08/19 15:15 06/08/19 15:15 06/08/19 15:15 06/08/19 15:15 Vital Signs - Last 8 Hours Temp Pulse Resp BP Pulse Ox 06/09/19 11:21 17 100 06/09/19 11:13 97.9 F 65 16 142/75 100 06/09/19 07:59 16 100 06/09/19 07:27 97.8 F 74 16 154/87 100 Intake and Output 06/08/19 06/09/19 06/09/19 23:59 07:59 15:59 Intake Total 1060 / 1060 100 / 100 Output Total 700 / 700 900 / 900 Balance 360 / 360 -900 / -800 100 / -800 Intake: IV Fluids 100 / 100 100 / 100 Ofirmev 1,000 mg/100 ml 1,000 100 / 100 100 / 100 mg In 100 ml @ 400 mls/hr IVPB Q8H [facility] Rx#:[id number] Oral 960 / 960 Output: Urine 700 / 700 900 / 900 Other: Meal snacks Percent of Meal Consumed 100% Weight 82.327 kg 82.327 kg Patient Weight 06/09/19 23:59 Weight 82.327 kg - General Appearance General appearance: well-developed, well-nourished EENT: ATNC, hearing intact, vision intact Neck: supple Respiratory: clear Cardiology: no edema, normal S1, normal S2 Gastrointestinal: normoactive bowel sounds, no tenderness, no guarding Integumentary: no rash, warm and dry Neurologic: alert and oriented x3 Musculoskeletal: no deformities, no erythema Psychiatric: mood/affect appropriate, cooperative Results - Lab Results 06/09/19 02:03 06/09/19 02:03 Most recent lab results 06/09/19 02:03 Calcium 9.0 Phosphorus 2.6 L Magnesium 1.9 Consult Discharge Plan - Plan Referrals: Yanira Wagner [Advanced Practice Nurse] - 06/15/19 10:30 am ([facility])
[2019-06-09] MEDS ORDERED: 0.9 % Sodium Chloride 1,000 ML IVC SCH (14:30)
[2019-06-09] MEDS ORDERED: hydrOXYzine pamoate 25 MG CAPSULE PO PRN (15:08)
[2019-06-09] MEDS ORDERED: Ondansetron ODT 4 MG TAB.RAPDIS PO PRN (15:08)
[2019-06-09] MEDS ORDERED: cloNIDine HCl 0.1 MG TABLET PO PRN (15:30)
[2019-06-09] MEDS ORDERED: Melatonin 3 MG TABLET PO SCH (21:00)
--- NOTE | 2019-06-11 13:49 | Electrocardiograph Report ---
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
--- NOTE | 2019-06-17 16:19 | Discharge Summary ---
- NOTES TO OUTPATIENT PROVIDER Notes to Outpatient Provider: f/u with PCP in one week. Date of Encounter: 06/09/19 Time of Encounter: 15:00 - Discharge Diagnosis (1) Chest pain Priority: Primary Status: Acute Qualifiers: Chest pain type: unspecified Qualified Code(s): R07.9 - Chest pain, unspecified (2) CHF (congestive heart failure) Priority: Secondary Status: Acute Qualifiers: Heart failure type: diastolic Heart failure chronicity: unspecified Qualified Code(s): I50.30 - Unspecified diastolic (congestive) heart failure (3) COPD exacerbation Priority: Secondary Status: Acute (4) CKD (chronic kidney disease), stage III Priority: Secondary Status: Acute (5) DVT prophylaxis Priority: Secondary Status: Acute Hospital course: Mr. Brown is a 38 year old male with PMH of IVDU, Uncontrolled HTN, Pulm HTN, CKD-3 and HFpEF, who presented to ER with left sided chest pain for 2 weeks. Described the pain as constant, non-exertional, and "sharp". Pt is in a drug rehabilitation facility and has been there for 2 weeks. He reports he has not used in 2 weeks and UDS is negative. He was admitted in the hospital and placed him on commercial review appraiser. His troponin slightly elevated, adynamic and flat, due to demand ischemia. However since pt is keep complaining of recurrent CP and had multiple hospitalizations with chest pain , consulted cardiology for further eval. Card is planning on doing LHC In AM. Consulted Nephro for renal assistance due to his CKD-3. However pt left AMA that night on 06/09/19. I was not in the hospital to talked to the patient at that time. - Time Spent with Patient Total time spent providing and/or coordinating discharge services: - Discharge Medications Prescriptions: No Action hydrALAZINE [HydrALAZINE] 100 mg PO TID #360 tablet NIFEdipine XL (24 HR) [Procardia XL] 60 mg PO DAILY #30 tab.er.24 Labetalol [Trandate] 300 mg PO BID #180 tablet Melatonin 10 mg PO HS Dicyclomine Hcl [Bentyl] 20 mg PO TID PRN PRN Reason: Nausea cloNIDine HCl [Clonidine HCl] 0.1 mg PO BID PRN PRN Reason: Hypertension Cyclobenzaprine [Flexeril] 10 mg PO BID PRN PRN Reason: Muscle Spasm hydrOXYzine pamoate [Vistaril] 25 mg PO TID PRN PRN Reason: Anxiety Ondansetron HCl [Zofran] 4 mg PO Q6H PRN PRN Reason: Nausea Home Medications: Labetalol [Trandate] 300 mg PO BID #180 tablet 05/25/19 [Rx] NIFEdipine XL (24 HR) [Procardia XL] 60 mg PO DAILY #30 tab.er.24 05/25/19 [Rx] hydrALAZINE [HydrALAZINE] 100 mg PO TID #360 tablet 05/25/19 [Rx] Melatonin 10 mg PO HS 06/08/19 [History] Cyclobenzaprine [Flexeril] 10 mg PO BID PRN 06/09/19 [History] Dicyclomine Hcl [Bentyl] 20 mg PO TID PRN 06/09/19 [History] Ondansetron HCl [Zofran] 4 mg PO Q6H PRN 06/09/19 [History] cloNIDine HCl [Clonidine HCl] 0.1 mg PO BID PRN 06/09/19 [History] hydrOXYzine pamoate [Vistaril] 25 mg PO TID PRN 06/09/19 [History] Allergies/Adverse Reactions: Allergy/AdvReac Type Severity Reaction Status Date / Time Amoxicillin Allergy See Verified 05/24/19 16:19 Comments Date of admission: 06/08/19 18:16 Primary care physician: PCP NONE Consults: 06/08/19 16:37 Consult to Cardiology [CONS] Stat Comment: Consulting Provider: Cardiology Tanvi Reason for Consult: chest pain, elev trop Time Notified: 16:38 Call Completed: Yes 06/09/19 08:13 Consult to Nurse Navigator [CONS] Routine Comment: COPD 06/09/19 10:03 Consult to Nephrology [CONS] Routine Consulting Provider: Kidney Tanvi/MIRIAM/NIRAV/BRYON Reason for Consult: Stable CKD3, need for diagnostic LHC, TERRANCE risk roughly 26%. Call Completed: Yes 06/09/19 13:51 Consult to Ceramics Engineer [CONS] Routine Reason for SW Consult: HOMELESS - Constitutional Vitals: Temp Pulse Resp BP Pulse Ox 97.9 F 65 17 142/75 100 06/09/19 11:13 06/09/19 11:13 10/01/19 11:21 06/09/19 11:13 06/09/19 11:21 Exam: a - Patient Status Disposition: Left Against Medical Advice Condition: Fair - Discharge Instructions Follow Up With: Yanira Wagner [Advanced Practice Nurse] - 06/15/19 10:30 am ([facility])
== END 2019-06-09 16:49 | disposition left against medical advice (07) ==
LOC: 3BNU 15:07 → EMEROOARM 15:07 → SUATTDRO 18:16 → 3BNU 18:51
PROVIDERS: ADMIT Pharmacist; ATTEND Family Medicine